=== PATIENT | male | born 1960 | race Asian ===

== ENCOUNTER 2019-01-02 22:35 | Inpatient (IN) | payer OTHER ==
[~2019-01-02] VITALS: Ht 167.6 cm; Wt 78.1 kg
[2019-01-02] MEDS ORDERED: SODIUM CHLORIDE 0.9% 1L BAG IV* STA (22:53)
[2019-01-02] MEDS ORDERED: PIPER-TAZO 3.375 GM IV (PMX) 100 ML IVPB STA (22:53)
[2019-01-03] MEDS ORDERED: SOD CHLORIDE 0.9% 100 ML ONE (02:06)
[2019-01-03] MEDS ORDERED: IOHEXOL 300MG/ML 150 ML BTL ONE (02:06)
--- NOTE | 2019-01-03 02:29 | ERD ---
ER Documentation Chief Complaint Chief Complaint BIBA 881 for back pain and SOB HPI 58-year-old homeless male brought in by ambulance for back pain and shortness of breath. He states that he has a wound on his buttocks and was seen 2 days ago and placed on antibiotics. He denies any chest pain but states he is somewhat short of breath. His Luu was last changed 2 weeks ago by a urologist. He denies any chest pain or abdominal pain. No recent fevers or chills. ROS All systems reviewed and are negative except as per history of present illness. Medications Home Meds Unable to Obtain Active Prescriptions or Reported Meds Allergies Allergies: Coded Allergies: vancomycin (Verified Allergy, Unknown, 01/02/19) PMhx/Soc History of Surgery: No Hx Cardiac Disorders: Yes (HTN) Hx Miscellaneous Medical Probl: Yes (Sacral decubitus ulcers) Hx Alcohol Use: No Hx Substance Use: No Hx Tobacco Use: No Smoking Status: Never smoker FmHx Family History: No diabetes Physical Exam Vitals Vital Signs Date Temp Pulse Resp B/P (MAP) Pulse Ox O2 O2 Flow FiO2 Time Delivery Rate 01/03/19 85 20 105/69 99 Room Air 02:29 (81) 01/03/19 98.9 89 19 90/68 (75) 96 Room Air 01:42 01/03/19 92 20 102/80 97 Room Air 01:27 (87) 01/03/19 Simple 2 00:10 Mask 01/02/19 99.7 139 18 160/103 100 22:40 (122) Physical Exam Const: Appears to be in distress Head: Atraumatic Eyes: Normal Conjunctiva ENT: Dry oral mucosa Neck: Full range of motion. No meningismus. Resp: Clear to auscultation bilaterally Cardio: tachycardic with regular rhythm, no murmurs Abd: Soft, non tender, non distended. Normal bowel sounds Skin: No petechiae or rashes Back: No midline or flank tenderness. Bilateral sacral decubitus stage IV ulcers with necrotic tissue noted : Luu in place Ext: No cyanosis, or edema Neur: Awake and alert Psych: Normal Mood and Affect Result Diagram: 01/02/19 2307 01/02/19 2305 Results 24 hrs Laboratory Tests Test 01/02/19 23:05 01/03/19 00:05 01/03/19 02:25 White Blood Count 15.4 10^3/ul Red Blood Count 7.05 10^6/ul Hemoglobin 13.2 g/dl Hematocrit 43.5 % Mean Corpuscular Volume 61.7 fl Mean Corpuscular Hemoglobin 18.7 pg Mean Corpuscular 30.3 g/dl Hemoglobin Concent Red Cell Distribution Width 20.3 % Platelet Count 575 10^3/UL Mean Platelet Volume 8.2 fl Immature Granulocytes % 0.700 % Neutrophils % 72.4 % Lymphocytes % 20.1 % Monocytes % 5.3 % Eosinophils % 1.1 % Basophils % 0.4 % Nucleated Red Blood Cells % 0.0 /100WBC Immature Granulocytes # 0.110 10^3/ul Neutrophils # 11.1 10^3/ul Lymphocytes # 3.1 10^3/ul Monocytes # 0.8 10^3/ul Eosinophils # 0.2 10^3/ul Basophils # 0.1 10^3/ul Nucleated Red Blood Cells # 0.0 10^3/ul Prothrombin Time 12.2 Sec Prothrombin Time Ratio 1.0 INR International Normalized Ratio 0.89 Activated Partial Thromboplast 35.2 Sec Time Sodium Level 133 mmol/L Potassium Level 5.4 mmol/L Chloride Level 93 mmol/L Carbon Dioxide Level 24 mmol/L Anion Gap 16 Blood Urea Nitrogen 22 mg/dl Creatinine 0.68 mg/dl Est Glomerular Filtrat Rate mL/min > 60 mL/min Glucose Level 350 mg/dl Calcium Level 10.0 mg/dl Total Bilirubin 0.1 mg/dl Direct Bilirubin 0.00 mg/dl Indirect Bilirubin 0.1 mg/dl Aspartate Amino Transf (AST/SGOT) 36 IU/L Alanine 6 IU/L Aminotransferase (ALT/SGPT) Alkaline Phosphatase 129 IU/L Troponin I < 0.012 ng/ml Total Protein 10.3 g/dl Albumin 4.6 g/dl Globulin 5.70 g/dl Albumin/Globulin Ratio 0.80 POC Venous Lactate 3.3 mmol/L 2.1 mmol/L Current Medications Medications Dose Sig/Yvette Start Time Status Last (Trade) Ordered Route PRN Stop Time Admin Dose Reason Admin Sodium 2,250 ml BOLUS OVER 2 01/02/19 DC 01/02/19 Chloride HOURS STAT 22:53 23:17 (NS) IV* 01/02/19 22:54 Piperacillin 100 ml @ ONCE STAT 01/02/19 DC 01/02/19 Sod/ 200 mls/hr IVPB 22:53 23:16 Tazobactam 01/02/19 23:22 Sod IV Flush 10 ml STK-MED 01/03/19 DC (NS 10 ml) ONCE .ROUTE 02:06 01/03/19 02:07 Sodium 100 ml @ ud STK-MED 01/03/19 DC Chloride ONCE .ROUTE 02:06 01/03/19 02:07 Iohexol 150 ml STK-MED 01/03/19 DC (Omnipaque ONCE .ROUTE 02:06 300mg/ ml) 01/03/19 02:07 Ondansetron 4 mg ER BRIDGE 01/03/19 HCl (Zofran PRN IV 02:30 Inj) NAUSEA/VOMITI 01/04/19 02:29 NG 650 mg ER BRIDGE 01/03/19 Acetaminophen PRN PO 02:30 (Tylenol .MILD PAIN 01/04/19 02:29 Tab) 1-3 OR TEMP Procedures/MDM EMERGENT LABS AND DIAGNOSTIC STUDIES: Lab Results above were reviewed and interpreted by me. CBC: Leukocytosis and thrombocytosis, concerning for infection CMP: Hyperglycemia, elevated BUN, and hyperkalemia. No evidence of acute renal failure. No evidence of DKA. Troponin within normal limits, not indicative of cardiac ischemia Lactate elevated consistent with severe sepsis and tissue hypoperfusion UA: Pending 12-lead EKG was interpreted by Kelly Nichols MD: Sinus tachycardia with ventricular rate of 124 beats per minute Left axis deviation Inferior Q waves abnormal R wave progression Normal intervals No acute ST or T wave changes suggestive of acute ischemia or STEMI. Radiology Results as interpreted by Radiology below were reviewed by Cassidy Nichols MD: Chest x-ray shows no acute abnormalities CT pelvis with IV contrast pending Initial Nursing notes reviewed. Previous Medical Records requested via the Electronic Health Record. EMERGENCY DEPARTMENT COURSE / MEDICAL DECISION MAKING: Patient has no evidence of pneumonia. He does have a chronic Luu so I am concerned about UTI. However the patient is refusing to have us change his Luu. I do not think the urine from his current Luu is sufficient enough for testing as it would likely be positive due to contamination. His sacral wound does appear infected. I ordered a CT pelvis to evaluate for underlying abscess, however the patient is refusing to have it done stating that he had a done last week and does not want it again. I explained to him exactly why I am doing the CT, however the patient continues to refuse. He is alert and oriented and able to make medical decisions for himself. Patient's infectious symptoms have not stabilized and the patient is at risk of rapid decompensation. The patient will be admitted for careful hydration, antibiotic therapy, and infectious source control. Severe Sepsis Assessment: Infectious Source: Infected sacral wound. possible UTI End organ damage indicated by: Lactate > 2.0 mmol/L Severe Sepsis Managment: Blood Cultures X 2 before broad spectrum antibiotics initiated within 3 hours of recognition. 30 ml/kg NS bolus Completed Initial Lactate: 3.3 Repeat Lactate 2.1 Critical Care: Time: 35 minutes Treatments/Evaluations: Emergent fluid management, while maintaining close respiratory support. Immediate broad spectrum antibiotic therapy. Simultaneous assessment for possible sources in order to direct therapy. Consideration for invasive and chemical support to prevent respiratory or cardiac collapse. Septic Shock Assessment (1 hour post 30 ml/kg fluid bolus): Hypotension (SBP < 90 or 40 mmHg drop, MAP < 65): No Lactic acid > 4.0 no Accepting Care Team: Current data and ongoing care discussed. Time: Time of admission Primary Provider: Dr. Lilly Bedolla Diagnosis: Primary Impression: Severe sepsis Additional Impressions: Infected wound Sacral decubitus ulcer, stage IV Hyperglycemia Condition: Serious EKLOAN KAYE MD Jan 03, 2019 02:29
[2019-01-03] MEDS ORDERED: ONDANSETRON 4 MG INJ IV PRN ×2 (02:30→05:00)
[2019-01-03] MEDS ORDERED: ACETAMINOPHEN 325 MG TAB PO PRN (02:30)
[2019-01-03] MEDS ORDERED: GLUCAGON 1 MG INJ IM PRN (05:00)
[2019-01-03] MEDS ORDERED: DEXTROSE 50% 50 ML SYRINGE IV PRN ×2 (05:00)
[2019-01-03] MEDS ORDERED: NACL 0.9% 3 ML SYG IV SCH (05:00)
[2019-01-03] MEDS ORDERED: morphine 2 MG INJ IV PRN (05:00)
[2019-01-03] MEDS ORDERED: GLUCOSE GEL 15 GRAM TUBE BUCCAL PRN (05:00)
[2019-01-03] MEDS ORDERED: GLUCOSE GEL 15 GRAM TUBE PO PRN ×2 (05:00)
[2019-01-03] MEDS: SOD CHLORIDE 0.9% 1,000 ML IV SCH ×2 (05:39→15:25)
[2019-01-03] MEDS: PIPER-TAZO 3.375 GM IV (PMX) 100 ML IVPB SCH ×3 (06:10→18:37)
[2019-01-03] MEDS ORDERED: INSULIN ASPART [NOVOLOG] 3 ML PEN SC SCH (08:00)
[2019-01-03] MEDS: metFORMIN 500 MG TAB PO SCH ×2 (09:00→18:37)
--- NOTE | 2019-01-03 09:06 | HP ---
Date/Time of Note Date/Time of Note DATE: 01/03/19 TIME: 08:56 Assessment/Plan VTE Prophylaxis SCD applied (from Nsg): Yes Pharmacological prophylaxis: heparin Lines/Catheters IV Catheter Type (from Nrsg): Saline Lock Assessment/Plan Problems: (1) Sepsis Status: Acute Comment: Patient has been treated with full cultures and is now on antibiotics. Will have surgery look at the wounds and see about getting him cleaned up. Follow standard sepsis protocol. Qualifiers: Sepsis type: sepsis due to unspecified organism Qualified Codes: A41.9 - Sepsis, unspecified organism (2) Sacral decubitus ulcer, stage IV Status: Acute Comment: General surgery and wound consult have been obtained. I have a sensation that there is a lot more to find out about this gentleman from his other hospitals however there is no way to get that information at this very moment (3) Paraplegic spinal paralysis Status: Chronic Comment: Noted. environmental services coordinator and case management to be involved (4) Wheelchair bound Status: Chronic Comment: As above. (5) Luu catheter in place Status: Chronic Comment: Try to replace the Luu catheter. These note the patient states he does not have urologist that the Luu catheter was changed 2 weeks ago at a different hospital (6) Hyperglycemia Status: Acute Comment: Check A1c place patient on insulin based regimen of low-dose metformin. We will try and get this under control but we need to do this simply because this is not going to be an extremely compliant patient (7) Essential hypertension Status: Chronic Comment: Use of ANTONIO inhibitors once stable (8) Homeless single person Status: Chronic Comment: Management and healthcare social worker Result Diagram: 01/03/19 0541 01/03/19 0541 Results 24hrs Laboratory Tests Test 01/02/19 23:05 01/03/19 00:05 01/03/19 02:25 01/03/19 04:16 White Blood Count 15.4 H Red Blood Count 7.05 H Hemoglobin 13.2 L Hematocrit 43.5 Mean Corpuscular 61.7 L Volume Mean Corpuscular 18.7 L Hemoglobin Mean Corpuscular 30.3 L Hemoglobin Concent Red Cell 20.3 H Distribution Width Platelet Count 575 H Mean Platelet Volume 8.2 Immature 0.700 H Granulocytes % Neutrophils % 72.4 Lymphocytes % 20.1 Monocytes % 5.3 Eosinophils % 1.1 Basophils % 0.4 Nucleated Red Blood 0.0 Cells % Immature 0.110 H Granulocytes # Neutrophils # 11.1 H Lymphocytes # 3.1 H Monocytes # 0.8 Eosinophils # 0.2 Basophils # 0.1 Nucleated Red Blood 0.0 Cells # Prothrombin Time 12.2 Prothrombin Time 1.0 Ratio INR International 0.89 Normalized Ratio Activated 35.2 H Partial Thromboplast Time Sodium Level 133 L Potassium Level 5.4 H Chloride Level 93 L Carbon Dioxide Level 24 Anion Gap 16 H Blood Urea Nitrogen 22 H Creatinine 0.68 Est Glomerular > 60 Filtrat Rate mL/min Glucose Level 350 H Calcium Level 10.0 Total Bilirubin 0.1 L Direct Bilirubin 0.00 Indirect Bilirubin 0.1 Aspartate Amino 36 Transf (AST/SGOT) Alanine 6 L Aminotransferase (AL T/SGPT) Alkaline Phosphatase 129 H Troponin I < 0.012 Total Protein 10.3 H Albumin 4.6 Globulin 5.70 H Albumin/Globulin 0.80 Ratio POC Venous Lactate 3.3 *H 2.1 *H Lactic Acid Level 2.5 *H Test 01/03/19 05:41 01/03/19 08:05 White Blood Count 12.8 H Red Blood Count 5.75 Hemoglobin 10.9 L Hematocrit 36.0 L Mean Corpuscular 62.6 L Volume Mean Corpuscular 19.0 L Hemoglobin Mean Corpuscular 30.3 L Hemoglobin Concent Red Cell 19.1 H Distribution Width Platelet Count 442 #H Mean Platelet Volume 8.2 Immature 0.900 H Granulocytes % Neutrophils % 67.6 Lymphocytes % 19.8 Monocytes % 8.8 Eosinophils % 2.4 Basophils % 0.5 Nucleated Red Blood 0.0 Cells % Immature 0.120 H Granulocytes # Neutrophils # 8.7 H Lymphocytes # 2.5 Monocytes # 1.1 H Eosinophils # 0.3 Basophils # 0.1 Nucleated Red Blood 0.0 Cells # Sodium Level 136 Potassium Level 4.1 Chloride Level 101 Carbon Dioxide Level 22 Anion Gap 13 Blood Urea Nitrogen 16 Creatinine 0.47 L Est Glomerular > 60 Filtrat Rate mL/min Glucose Level 195 # Calcium Level 8.4 Magnesium Level 1.9 Total Bilirubin 0.2 Direct Bilirubin 0.00 Indirect Bilirubin 0.2 Aspartate Amino 19 Transf (AST/SGOT) Alanine 7 L Aminotransferase (AL T/SGPT) Alkaline Phosphatase 93 Total Protein 7.7 # Albumin 3.5 # Globulin 4.20 H Albumin/Globulin 0.83 Ratio Bedside Glucose 230 H HPI/ROS Admit Date/Time Admit Date/Time January 03, 2019 ROS Patient is a limited historian. He reports that he came to the hospital because he is having pain. He states that he is trying to find a long term to move into when asked about his living situation. He has recently been in a hospital in the city but has no idea who the physicians were which hospital it was what medications he takes. He states he does not use an outpatient pharmacy, and gets all of his medications from the hospital directly. He reports he is never had surgery. Constitutional: febrile Eyes: no complaints ENT: no complaints Respiratory: no complaints Cardiovascular: no complaints Gastrointestinal: no complaints Musculoskeletal: back pain Skin: skin lesions Neurologic: no complaints PMH/Family/Social Past Medical History He is not a good historian Medical History: diabetes (Type II), other (Reports a history of paraplegia for roughly 5 years as near as I can determine.) Medications Current Medications Ondansetron HCl (Zofran Inj) 4 mg ER BRIDGE PRN IV NAUSEA/VOMITING; Start 01/03/19 at 02:30; Stop 01/04/19 at 02:29 Acetaminophen (Tylenol Tab) 650 mg ER BRIDGE PRN PO .MILD PAIN 1-3 OR TEMP; Start 01/03/19 at 02:30; Stop 01/04/19 at 02:29 Piperacillin Sod/ Tazobactam Sod 100 ml @ 200 mls/hr Q6 IVPB Last administered on 01/03/19at 06:10; Admin Dose 200 MLS/HR; Start 01/03/19 at 06:00 Sodium Chloride 1,000 ml @ 100 mls/hr Q10H IV Last administered on 01/03/19at 05:39; Admin Dose 100 MLS/HR; Start 01/03/19 at 04:51 IV Flush (NS 3 ml) 3 ml PER PROTOCOL IV ; Start 01/03/19 at 05:00 Ondansetron HCl (Zofran Inj) 4 mg Q6H PRN IV NAUSEA/VOMITING; Start 01/03/19 at 05:00 Acetaminophen (Tylenol Tab) 650 mg Q6H PRN PO .PAIN 1-3 OR TEMP; Start 01/03/19 at 05:00 Acetaminophen/ Hydrocodone Bitart (Rogers (5/325)) 1 tab Q6H PRN PO .PAIN 4-6; Start 01/03/19 at 05:00 Morphine Sulfate (morphine) 2 mg Q4H PRN IV .PAIN 7-10; Start 01/03/19 at 05:00 Diagnostic Test (Pha) (Accu-Chek) 1 ea 02 XX ; Start 01/04/19 at 02:00 Insulin Aspart (Novolog Insulin Pen) NOVOLOG *MILD* ALGORITHM WITH MEALS BEDTIME SC Last administered on 01/03/19at 08:18; Admin Dose 3 UNIT; Start 01/03/19 at 08:00 Miscellaneous Information 1 ea NOTE XX ; Start 01/03/19 at 05:00 Glucose (Glutose) 15 gm Q15M PRN PO DECREASED GLUCOSE; Start 01/03/19 at 05:00 Glucose (Glutose) 22.5 gm Q15M PRN PO DECREASED GLUCOSE; Start 01/03/19 at 05:00 Dextrose (D50w Syringe) 25 ml Q15M PRN IV DECREASED GLUCOSE; Start 01/03/19 at 05:00 Dextrose (D50w Syringe) 50 ml Q15M PRN IV DECREASED GLUCOSE; Start 01/03/19 at 05:00 Glucagon (Glucagen) 1 mg Q15M PRN IM DECREASED GLUCOSE; Start 01/03/19 at 05:00 Glucose (Glutose) 15 gm Q15M PRN BUCCAL DECREASED GLUCOSE; Start 01/03/19 at 05:00 Coded Allergies: vancomycin (Verified Allergy, Unknown, 01/02/19) Past Surgical History Past Surgical Hx: no surgical history Family History Significant Family History: no pertinent family hx Social History Born in [place] and raised there apart actually in the [facility]. He is presently homeless. Alcohol Use: other (In the past) Smoking Status: Former smoker Drug Use: none Exam/Review of Systems Vital Signs Vitals Vital Signs Date Temp Pulse Resp B/P (MAP) Pulse Ox O2 O2 Flow FiO2 Time Delivery Rate 01/03/19 98.1 82 18 116/70 95 Room Air 08:30 (85) 01/03/19 2 00:10 Intake and Output 01/02/19 01/02/19 01/03/19 1515:00 23:00 07:00 IntakeIntake Total 2350 ml BalanceBalance 2350 ml Exam Exam Older male lying on a gurney in the emergency room moaning intermittently Constitutional: alert Head: normocephalic, atraumatic Eyes: nl conjunctiva, EOMI, nl lids, nl sclera Neck: supple, non-tender Respiratory: clear to auscultation, normal air movement Cardiovascular: regular rate and rhythm, nl pulses Gastrointestinal: soft, nl liver, spleen, non-tender Musculoskeletal: nl extremities to inspection (There is some atrophy of his muscles of his lower leg but less than I would have expected.) Extremities: normal pulses Neurological: NURSE STAFF II-XII intact, nl speech Skin: other (Decubiti on each buttock unstageable) TIN ROSALES MD Jan 03, 2019 09:06
--- NOTE | 2019-01-03 09:36 | CONS ---
Assessment/Plan Assessment/Plan Assessment/Plan (Daily) Left sacrum and buttock ulcers are granulating. There are new necrotic eschars of the right sacrum and buttock which will require operative debridement. This has been scheduled for tomorrow morning pending medical clearance. Consultation Date/Type/Reason Admit Date/Time January 03, 2019 Date of Consultation: Jan 03, 2019 Type of Consult General surgery Reason for Consultation Sacral and buttock decubitus ulcers Date/Time of Note DATE: 01/03/19 TIME: 09:31 Hx of Present Illness The patient is a 58-year-old paraplegic gentleman who resides in a [facility] care facility. He has known decubitus ulcers which have been treated, however he has extension of ulceration with new large patches of necrosis specifically on the right buttock and thigh. He has a chronic indwelling Luu catheter Constitutional: no complaints Eyes: no complaints ENT: no complaints Respiratory: no complaints Cardiovascular: no complaints Genitourinary: other (Chronic indwelling Luu catheter) Musculoskeletal: back pain, other (Sacral and buttock decubiti) Skin: other (Sacral and buttock decubiti full-thickness. The left sacral and buttock decubitus is packed and granulating. The right sacral and buttock decubitus has new necrotic eschars) Neurologic: other (Paraplegia) Psychological: no complaints Past Medical History Medical History: diabetes (Type II), other (Reports a history of paraplegia for roughly 5 years as near as I can determine.) Home Meds Unable to Obtain Active Prescriptions or Reported Meds Medications Current Medications Ondansetron HCl (Zofran Inj) 4 mg ER BRIDGE PRN IV NAUSEA/VOMITING; Start 01/03/19 at 02:30; Stop 01/04/19 at 02:29 Acetaminophen (Tylenol Tab) 650 mg ER BRIDGE PRN PO .MILD PAIN 1-3 OR TEMP; Start 01/03/19 at 02:30; Stop 01/04/19 at 02:29 Piperacillin Sod/ Tazobactam Sod 100 ml @ 200 mls/hr Q6 IVPB Last administered on 01/03/19at 06:10; Admin Dose 200 MLS/HR; Start 01/03/19 at 06:00 Sodium Chloride 1,000 ml @ 100 mls/hr Q10H IV Last administered on 01/03/19at 05:39; Admin Dose 100 MLS/HR; Start 01/03/19 at 04:51 IV Flush (NS 3 ml) 3 ml PER PROTOCOL IV ; Start 01/03/19 at 05:00 Ondansetron HCl (Zofran Inj) 4 mg Q6H PRN IV NAUSEA/VOMITING; Start 01/03/19 at 05:00 Acetaminophen (Tylenol Tab) 650 mg Q6H PRN PO .PAIN 1-3 OR TEMP; Start 01/03/19 at 05:00 Acetaminophen/ Hydrocodone Bitart ([place] (5/325)) 1 tab Q6H PRN PO .PAIN 4-6; Start 01/03/19 at 05:00 Morphine Sulfate (morphine) 2 mg Q4H PRN IV .PAIN 7-10; Start 01/03/19 at 05:00 Diagnostic Test (Pha) (Accu-Chek) 1 ea 02 XX ; Start 01/04/19 at 02:00 Insulin Aspart (Novolog Insulin Pen) NOVOLOG *MILD* ALGORITHM WITH MEALS BEDTIME SC Last administered on 01/03/19at 08:18; Admin Dose 3 UNIT; Start 01/03/19 at 08:00 Miscellaneous Information 1 ea NOTE XX ; Start 01/03/19 at 05:00 Glucose (Glutose) 15 gm Q15M PRN PO DECREASED GLUCOSE; Start 01/03/19 at 05:00 Glucose (Glutose) 22.5 gm Q15M PRN PO DECREASED GLUCOSE; Start 01/03/19 at 05:00 Dextrose (D50w Syringe) 25 ml Q15M PRN IV DECREASED GLUCOSE; Start 01/03/19 at 05:00 Dextrose (D50w Syringe) 50 ml Q15M PRN IV DECREASED GLUCOSE; Start 01/03/19 at 05:00 Glucagon (Glucagen) 1 mg Q15M PRN IM DECREASED GLUCOSE; Start 01/03/19 at 05:00 Glucose (Glutose) 15 gm Q15M PRN BUCCAL DECREASED GLUCOSE; Start 01/03/19 at 05:00 Miscellaneous Information (* Miscellaneous Pharmacy Order) Discontinue current oral sulfonylur... ONCE ONCE XX ; Start 01/03/19 at 09:00; Stop 01/03/19 at 09:01; Status UNV Diagnostic Test (Pha) (Accu-Chek) 1 ea 02 XX ; Start 01/04/19 at 02:00; Status UNV Diagnostic Test (Pha) (Accu-Chek) 1 ea 2 HOURS AFTER MEALS XX ; Start 01/03/19 at 10:00; Status UNV Insulin Glargine (Lantus) 15 units DAILY@2000 SC ; Start 01/03/19 at 20:00; Status UNV Insulin Aspart (Novolog Insulin Pen) 5 unit WITH MEALS SC ; Start 01/03/19 at 12:00; Status UNV Miscellaneous Information (* Miscellaneous Pharmacy Order) HYPOGLYCEMIA PROTOCOL w... ONCE ONCE XX ; Start 01/03/19 at 09:00; Stop 01/03/19 at 09:01; Status UNV Insulin Aspart (Novolog Insulin Pen) NOVOLOG *MILD* ALGORITHM WITH MEALS BEDTIME SC ; Start 01/03/19 at 12:00; Status UNV Miscellaneous Information (* Miscellaneous Pharmacy Order) Discontinue all previ... ONCE ONCE XX ; Start 01/03/19 at 09:00; Stop 01/03/19 at 09:01; Status UNV Metformin HCl (Glucophage) 500 mg BID WITH MEALS PO ; Start 01/03/19 at 09:00; Status UNV Allergies: Coded Allergies: vancomycin (Verified Allergy, Unknown, 01/02/19) Past Surgical History Past Surgical Hx: no surgical history Family History Significant Family History: no pertinent family hx Social History Alcohol Use: other (In the past) Smoking Status: Former smoker Drug Use: none Exam/Review of Systems Exam Vitals Vital Signs Date Temp Pulse Resp B/P (MAP) Pulse Ox O2 O2 Flow FiO2 Time Delivery Rate 01/03/19 98.1 82 18 116/70 95 Room Air 08:30 (85) 01/03/19 2 00:10 Intake and Output 01/02/19 01/02/19 01/03/19 1515:00 23:00 07:00 IntakeIntake Total 2350 ml BalanceBalance 2350 ml Constitutional: alert, oriented Psych: no complaints Head: normocephalic Eyes: nl conjunctiva ENMT: nl external ears & nose Neck: supple Respiratory: clear to auscultation Cardiovascular: regular rate and rhythm Gastrointestinal: soft Genitourinary - Male: other (Luu catheter) Musculoskeletal: other (Granulating decubiti of left sacrum and buttock. New necrotic eschars of right sacrum and buttock) Results Result Diagram: 01/03/19 0541 01/03/19 0541 Results 24hrs Laboratory Tests Test 01/02/19 23:05 01/03/19 00:05 01/03/19 02:25 01/03/19 04:16 White Blood Count 15.4 H Red Blood Count 7.05 H Hemoglobin 13.2 L Hematocrit 43.5 Mean Corpuscular 61.7 L Volume Mean Corpuscular 18.7 L Hemoglobin Mean Corpuscular 30.3 L Hemoglobin Concent Red Cell 20.3 H Distribution Width Platelet Count 575 H Mean Platelet Volume 8.2 Immature 0.700 H Granulocytes % Neutrophils % 72.4 Lymphocytes % 20.1 Monocytes % 5.3 Eosinophils % 1.1 Basophils % 0.4 Nucleated Red Blood 0.0 Cells % Immature 0.110 H Granulocytes # Neutrophils # 11.1 H Lymphocytes # 3.1 H Monocytes # 0.8 Eosinophils # 0.2 Basophils # 0.1 Nucleated Red Blood 0.0 Cells # Prothrombin Time 12.2 Prothrombin Time 1.0 Ratio INR International 0.89 Normalized Ratio Activated 35.2 H Partial Thromboplast Time Sodium Level 133 L Potassium Level 5.4 H Chloride Level 93 L Carbon Dioxide Level 24 Anion Gap 16 H Blood Urea Nitrogen 22 H Creatinine 0.68 Est Glomerular > 60 Filtrat Rate mL/min Glucose Level 350 H Calcium Level 10.0 Total Bilirubin 0.1 L Direct Bilirubin 0.00 Indirect Bilirubin 0.1 Aspartate Amino 36 Transf (AST/SGOT) Alanine 6 L Aminotransferase (AL T/SGPT) Alkaline Phosphatase 129 H Troponin I < 0.012 Total Protein 10.3 H Albumin 4.6 Globulin 5.70 H Albumin/Globulin 0.80 Ratio POC Venous Lactate 3.3 *H 2.1 *H Lactic Acid Level 2.5 *H Test 01/03/19 05:41 01/03/19 08:05 White Blood Count 12.8 H Red Blood Count 5.75 Hemoglobin 10.9 L Hematocrit 36.0 L Mean Corpuscular 62.6 L Volume Mean Corpuscular 19.0 L Hemoglobin Mean Corpuscular 30.3 L Hemoglobin Concent Red Cell 19.1 H Distribution Width Platelet Count 442 #H Mean Platelet Volume 8.2 Immature 0.900 H Granulocytes % Neutrophils % 67.6 Lymphocytes % 19.8 Monocytes % 8.8 Eosinophils % 2.4 Basophils % 0.5 Nucleated Red Blood 0.0 Cells % Immature 0.120 H Granulocytes # Neutrophils # 8.7 H Lymphocytes # 2.5 Monocytes # 1.1 H Eosinophils # 0.3 Basophils # 0.1 Nucleated Red Blood 0.0 Cells # Sodium Level 136 Potassium Level 4.1 Chloride Level 101 Carbon Dioxide Level 22 Anion Gap 13 Blood Urea Nitrogen 16 Creatinine 0.47 L Est Glomerular > 60 Filtrat Rate mL/min Glucose Level 195 # Calcium Level 8.4 Magnesium Level 1.9 Total Bilirubin 0.2 Direct Bilirubin 0.00 Indirect Bilirubin 0.2 Aspartate Amino 19 Transf (AST/SGOT) Alanine 7 L Aminotransferase (AL T/SGPT) Alkaline Phosphatase 93 Total Protein 7.7 # Albumin 3.5 # Globulin 4.20 H Albumin/Globulin 0.83 Ratio Bedside Glucose 230 H Medications Medication Current Medications Ondansetron HCl (Zofran Inj) 4 mg ER BRIDGE PRN IV NAUSEA/VOMITING; Start at 02:30; Stop 01/04/19 at 02:29 Acetaminophen (Tylenol Tab) 650 mg ER BRIDGE PRN PO .MILD PAIN 1-3 OR TEMP; Start 01/03/19 at 02:30; Stop 01/04/19 at 02:29 Piperacillin Sod/ Tazobactam Sod 100 ml @ 200 mls/hr Q6 IVPB Last administered on 01/03/19at 06:10; Admin Dose 200 MLS/HR; Start 01/03/19 at 06:00 Sodium Chloride 1,000 ml @ 100 mls/hr Q10H IV Last administered on 01/03/19at 05:39; Admin Dose 100 MLS/HR; Start 01/03/19 at 04:51 IV Flush (NS 3 ml) 3 ml PER PROTOCOL IV ; Start 01/03/19 at 05:00 Ondansetron HCl (Zofran Inj) 4 mg Q6H PRN IV NAUSEA/VOMITING; Start 01/03/19 at 05:00 Acetaminophen (Tylenol Tab) 650 mg Q6H PRN PO .PAIN 1-3 OR TEMP; Start 01/03/19 at 05:00 Acetaminophen/ Hydrocodone Bitart ([place] (5/325)) 1 tab Q6H PRN PO .PAIN 4-6; Start 01/03/19 at 05:00 Morphine Sulfate (morphine) 2 mg Q4H PRN IV .PAIN 7-10; Start 01/03/19 at 05:00 Diagnostic Test (Pha) (Accu-Chek) 1 ea 02 XX ; Start 01/04/19 at 02:00 Insulin Aspart (Novolog Insulin Pen) NOVOLOG *MILD* ALGORITHM WITH MEALS BEDTIME SC Last administered on 01/03/19at 08:18; Admin Dose 3 UNIT; Start 01/03/19 at 08:00 Miscellaneous Information 1 ea NOTE XX ; Start 01/03/19 at 05:00 Glucose (Glutose) 15 gm Q15M PRN PO DECREASED GLUCOSE; Start 01/03/19 at 05:00 Glucose (Glutose) 22.5 gm Q15M PRN PO DECREASED GLUCOSE; Start 01/03/19 at 05:00 Dextrose (D50w Syringe) 25 ml Q15M PRN IV DECREASED GLUCOSE; Start 01/03/19 at 05:00 Dextrose (D50w Syringe) 50 ml Q15M PRN IV DECREASED GLUCOSE; Start 01/03/19 at 05:00 Glucagon (Glucagen) 1 mg Q15M PRN IM DECREASED GLUCOSE; Start 01/03/19 at 05:00 Glucose (Glutose) 15 gm Q15M PRN BUCCAL DECREASED GLUCOSE; Start 01/03/19 at 05:00 Miscellaneous Information (* Miscellaneous Pharmacy Order) Discontinue current oral sulfonylur... ONCE ONCE XX ; Start 01/03/19 at 09:00; Stop 01/03/19 at 09:01; Status UNV Diagnostic Test (Pha) (Accu-Chek) 1 ea 02 XX ; Start 01/04/19 at 02:00; Status UNV Diagnostic Test (Pha) (Accu-Chek) 1 ea 2 HOURS AFTER MEALS XX ; Start 01/03/19 at 10:00; Status UNV Insulin Glargine (Lantus) 15 units DAILY@2000 SC ; Start 01/03/19 at 20:00; Status UNV Insulin Aspart (Novolog Insulin Pen) 5 unit WITH MEALS SC ; Start 01/03/19 at 12:00; Status UNV Miscellaneous Information (* Miscellaneous Pharmacy Order) HYPOGLYCEMIA PROTOCOL w... ONCE ONCE XX ; Start 01/03/19 at 09:00; Stop 01/03/19 at 09:01; Status UNV Insulin Aspart (Novolog Insulin Pen) NOVOLOG *MILD* ALGORITHM WITH MEALS BEDTIME SC ; Start 01/03/19 at 12:00; Status UNV Miscellaneous Information (* Miscellaneous Pharmacy Order) Discontinue all previ... ONCE ONCE XX ; Start 01/03/19 at 09:00; Stop 01/03/19 at 09:01; Status UNV Metformin HCl (Glucophage) 500 mg BID WITH MEALS PO ; Start 01/03/19 at 09:00; Status UNV MINA BATRES MD Jan 03, 2019 09:35
[2019-01-03] MEDS: ACCU-CHEK XX SCH ×3 (10:00→19:55)
[2019-01-03] MEDS: INSULIN ASPART [NOVOLOG] 3 ML PEN SC SCH ×5 (11:52→21:00)
[2019-01-03 13:37] VITALS: Ht 167.6 cm; Wt 78.1 kg
[2019-01-03 15:43] VITALS: PULSE 87
[2019-01-03 20:00] VITALS: BP 129/64; PULSE 90; RESP 19
[2019-01-03] MEDS ORDERED: INSULIN GLARGINE [LANTus] (100 UNITS/ML) SYG SC SCH (20:00)
[2019-01-03] MEDS ORDERED: PENDING SANTYL ORDER FOR WOUND CARE XX PRN (20:00)
[2019-01-03 20:42] VITALS: PULSE 92
[2019-01-03] MEDS: ACETAMINOPHEN 325 MG TAB PO PRN (21:51)
[2019-01-04] VITALS (9 sets, daily range): BP systolic 100–127; BP diastolic 56–67; PULSE 67–157; RESP 18–20
[2019-01-04] MEDS: PIPER-TAZO 3.375 GM IV (PMX) 100 ML IVPB SCH ×5 (00:14→21:03)
[2019-01-04] MEDS: SOD CHLORIDE 0.9% 1,000 ML IV SCH ×3 (00:15→21:03)
[2019-01-04] MEDS: ACCU-CHEK XX SCH ×7 (02:00→21:02)
[2019-01-04] MEDS ORDERED: ACCU-CHEK XX SCH (02:00)
[2019-01-04] MEDS: HYDROCODONE/APAP (5/325) TAB PO PRN ×2 (05:16→13:31)
[2019-01-04] MEDS: INSULIN ASPART [NOVOLOG] 3 ML PEN SC SCH ×5 (07:59→20:48)
[2019-01-04] MEDS: metFORMIN 500 MG TAB PO SCH (08:44)
--- NOTE | 2019-01-04 10:53 | QN ---
Documentation Comment Patient is adamant and absolutely refuses any surgical intervention for his decubiti We will therefore sign off and see again prn your request MINA BATRES MD Jan 04, 2019 10:53
[2019-01-04] MEDS ORDERED: LEVOTHYROXINE 75 MCG TAB PO ONE (11:00)
--- NOTE | 2019-01-04 11:08 | PN ---
Date/Time of Note Date/Time of Note DATE: 01/04/19 TIME: 11:04 Assessment/Plan VTE Prophylaxis Risk score (from Ns)>0 risk: 6 SCD applied (from [facility]): No SCD contraindicated: patient refusal Pharmacological prophylaxis: heparin Lines/Catheters IV Catheter Type (from [facility]): Peripheral IV Urinary Cath still in place: Yes Reason Cath still needed: skin wounds contaminated by urine Assessment/Plan Problems: (1) Sacral decubitus ulcer, stage IV Status: Acute Comment: Neurosurgery recommended for him to have debridement which the patient flatly refuses both to the surgeon and myself. We will do our best with wound management. (2) Infected wound Status: Acute Comment: On antibiotics and wound management team is involved (3) Paraplegic spinal paralysis Status: Chronic Comment: Chronic issue unclear exactly what has led to this (4) Wheelchair bound Status: Chronic Comment: Noted. Social work and case assistant to assist. Organ have quite a time getting him placed. In addition his ability to absorb and process information but has real limitations (5) Luu catheter in place Status: Chronic Comment: Fresh catheters been placed cultures pending (6) Hepatitis C antibody positive in blood Status: Chronic Comment: . The patient denies any knowledge of this. Hepatitis precautions for the staff (7) Essential hypertension Status: Chronic Comment: Adequate control. (8) Anemia Status: Acute Comment: His blood counts dropped rather precipitously since his been in the hospital without evidence of GI bleeding. We will go ahead and check the labs on him. Qualifiers: Anemia type: unspecified type Qualified Codes: D64.9 - Anemia, unspecified (9) Diabetes mellitus type II, uncontrolled Status: Chronic Comment: Adjusting his regimen to get him under better control using a simplified regimen. Qualifiers: Glycemic state: with hyperglycemia Qualified Codes: E11.65 - Type 2 d iabetes mellitus with hyperglycemia (10) Onychomycosis due to dermatophyte Status: Chronic Comment: Lamisil pulse therapy (11) Homeless single person Status: Chronic Comment: Case management and social work. This is going to be tricky Result Diagram: 01/04/19 0544 01/04/19 0544 Results 24hrs Laboratory Tests Test 01/03/19 11:48 01/03/19 17:39 01/03/19 21:36 01/04/19 05:44 Bedside Glucose 242 H 214 299 H White Blood Count 9.3 # Red Blood Count 4.93 Hemoglobin 9.5 L Hematocrit 31.1 L Mean Corpuscular 63.1 L Volume Mean Corpuscular 19.3 L Hemoglobin Mean Corpuscular 30.5 L Hemoglobin Concent Red Cell 18.6 H Distribution Width Platelet Count 379 Mean Platelet Volume 8.2 Immature 0.900 H Granulocytes % Neutrophils % 57.9 Lymphocytes % 27.8 Monocytes % 8.6 Eosinophils % 4.3 Basophils % 0.5 Nucleated Red Blood 0.0 Cells % Immature 0.080 H Granulocytes # Neutrophils # 5.4 Lymphocytes # 2.6 Monocytes # 0.8 Eosinophils # 0.4 Basophils # 0.1 Nucleated Red Blood 0.0 Cells # Erythrocyte 83 H Sedimentation Rate Prothrombin Time 12.9 Prothrombin Time 1.0 Ratio INR International 0.96 Normalized Ratio Activated 37.1 H Partial Thromboplast Time Sodium Level 137 Potassium Level 4.0 Chloride Level 103 Carbon Dioxide Level 25 Anion Gap 9 Blood Urea Nitrogen 10 Creatinine 0.55 L Est Glomerular > 60 Filtrat Rate mL/min Glucose Level 239 H Calcium Level 8.5 Magnesium Level 1.7 Total Bilirubin 0.0 L Direct Bilirubin 0.00 Indirect Bilirubin 0.0 Aspartate Amino 14 L Transf (AST/SGOT) Alanine 7 L Aminotransferase (AL T/SGPT) Alkaline Phosphatase 93 Total Protein 7.0 Albumin 3.2 L Globulin 3.80 H Albumin/Globulin 0.84 Ratio Thyroid Stimulating 9.960 H Hormone (TSH) Test 01/04/19 07:53 Bedside Glucose 245 H Subjective 24 Hr Interval Summary Free Text/Dictation Patient reports no known prior history of sugar issues or thyroid issues. He flatly declines intervention regarding the decubitus ulcers and there debridement. Constitutional: no complaints (His fevers chills or sweats) Respiratory: no complaints Cardiovascular: no complaints Gastrointestinal: no complaints Exam/Review of Systems Exam Vitals Vital Signs Date Temp Pulse Resp B/P (MAP) Pulse Ox O2 O2 Flow FiO2 Time Delivery Rate 01/04/19 78 08:00 01/04/19 98.6 18 127/56 96 Room Air 07:35 (79) 01/03/19 2 00:10 Intake and Output 01/03/19 01/03/19 01/04/19 1515:00 23:00 07:00 IntakeIntake Total 550 ml 600 ml OutputOutput Total 450 ml 2500 ml BalanceBalance 100 ml -1900 ml Constitutional: alert, oriented Respiratory: clear to auscultation, normal air movement Cardiovascular: regular rate and rhythm, nl pulses Gastrointestinal: soft, nl liver, spleen, non-tender Extremities: other (Bilateral onychomycosis) Results Results 24hrs Laboratory Tests Test 01/03/19 11:48 01/03/19 17:39 01/03/19 21:36 01/04/19 05:44 Bedside Glucose 242 H 214 299 H White Blood Count 9.3 # Red Blood Count 4.93 Hemoglobin 9.5 L Hematocrit 31.1 L Mean Corpuscular 63.1 L Volume Mean Corpuscular 19.3 L Hemoglobin Mean Corpuscular 30.5 L Hemoglobin Concent Red Cell 18.6 H Distribution Width Platelet Count 379 Mean Platelet Volume 8.2 Immature 0.900 H Granulocytes % Neutrophils % 57.9 Lymphocytes % 27.8 Monocytes % 8.6 Eosinophils % 4.3 Basophils % 0.5 Nucleated Red Blood 0.0 Cells % Immature 0.080 H Granulocytes # Neutrophils # 5.4 Lymphocytes # 2.6 Monocytes # 0.8 Eosinophils # 0.4 Basophils # 0.1 Nucleated Red Blood 0.0 Cells # Erythrocyte 83 H Sedimentation Rate Prothrombin Time 12.9 Prothrombin Time 1.0 Ratio INR International 0.96 Normalized Ratio Activated 37.1 H Partial Thromboplast Time Sodium Level 137 Potassium Level 4.0 Chloride Level 103 Carbon Dioxide Level 25 Anion Gap 9 Blood Urea Nitrogen 10 Creatinine 0.55 L Est Glomerular > 60 Filtrat Rate mL/min Glucose Level 239 H Calcium Level 8.5 Magnesium Level 1.7 Total Bilirubin 0.0 L Direct Bilirubin 0.00 Indirect Bilirubin 0.0 Aspartate Amino 14 L Transf (AST/SGOT) Alanine 7 L Aminotransferase (AL T/SGPT) Alkaline Phosphatase 93 Total Protein 7.0 Albumin 3.2 L Globulin 3.80 H Albumin/Globulin 0.84 Ratio Thyroid Stimulating 9.960 H Hormone (TSH) Test 01/04/19 07:53 Bedside Glucose 245 H Medications Medication Current Medications Piperacillin Sod/ Tazobactam Sod 100 ml @ 200 mls/hr Q6 IVPB Last administered on 01/04/19at 05:22; Admin Dose 200 MLS/HR; Start 01/03/19 at 06:00 Sodium Chloride 1,000 ml @ 100 mls/hr Q10H IV Last administered on 01/04/19at 08:44; Admin Dose 100 MLS/HR; Start 01/03/19 at 04:51 IV Flush (NS 3 ml) 3 ml PER PROTOCOL IV ; Start 01/03/19 at 05:00 Ondansetron HCl (Zofran Inj) 4 mg Q6H PRN IV NAUSEA/VOMITING; Start 01/03/19 at 05:00 Acetaminophen (Tylenol Tab) 650 mg Q6H PRN PO .PAIN 1-3 OR TEMP Last administered on 01/03/19at 21:51; Admin Dose 650 MG; Start 01/03/19 at 05:00 Acetaminophen/ Hydrocodone Bitart ([place] (5/325)) 1 tab Q6H PRN PO .PAIN 4-6 Last administered on 01/04/19at 05:16; Admin Dose 1 TAB; Start 01/03/19 at 05:00 Morphine Sulfate (morphine) 2 mg Q4H PRN IV .PAIN 7-10 Last administered on 01/03/19at 11:13; Admin Dose 2 MG; Start 01/03/19 at 05:00 Miscellaneous Information 1 ea NOTE XX ; Start 01/03/19 at 05:00 Glucose (Glutose) 15 gm Q15M PRN PO DECREASED GLUCOSE; Start 01/03/19 at 05:00 Glucose (Glutose) 22.5 gm Q15M PRN PO DECREASED GLUCOSE; Start 01/03/19 at 05:00 Dextrose (D50w Syringe) 25 ml Q15M PRN IV DECREASED GLUCOSE; Start 01/03/19 at 05:00 Dextrose (D50w Syringe) 50 ml Q15M PRN IV DECREASED GLUCOSE; Start 01/03/19 at 05:00 Glucagon (Glucagen) 1 mg Q15M PRN IM DECREASED GLUCOSE; Start 01/03/19 at 05:00 Glucose (Glutose) 15 gm Q15M PRN BUCCAL DECREASED GLUCOSE; Start 01/03/19 at 05:00 Diagnostic Test (Pha) (Accu-Chek) 1 ea 02 XX ; Start 01/04/19 at 02:00 Diagnostic Test (Pha) (Accu-Chek) 1 ea 2 HOURS AFTER MEALS XX Last administered on 01/04/19at 10:53; Admin Dose 1 EA; Start 2/16/19 at 10:00 Insulin Glargine (Lantus) 15 units DAILY@2000 SC Last administered on 01/03/19at 21:40; Admin Dose 15 UNITS; Start 01/03/19 at 20:00 Insulin Aspart (Novolog Insulin Pen) 5 unit WITH MEALS SC Last administered on 01/04/19at 08:00; Admin Dose 5 UNIT; Start 01/03/19 at 12:00 Insulin Aspart (Novolog Insulin Pen) NOVOLOG *MILD* ALGORITHM WITH MEALS BEDTIME SC Last administered on 01/04/19at 07:59; Admin Dose 3 UNIT; Start 01/03/19 at 12:00 Metformin HCl (Glucophage) 500 mg BID WITH MEALS PO Last administered on 01/04/19at 08:44; Admin Dose 500 MG; Start 01/03/19 at 09:00 Miscellaneous Information (Pending [facility] Order For Wound Care) This patient sanchez... PRN PRN XX WOUND CARE; Start 01/03/19 at 20:00 Levothyroxine Sodium (Synthroid) 75 mcg DAILY@06 PO ; Start 01/05/19 at 06:00; Status UNV Levothyroxine Sodium (Synthroid) 75 mcg ONCE ONCE PO ; Start 01/04/19 at 11:00; Stop 01/04/19 at 11:01; Status UNV Terbinafine HCl (Lamisil) 250 mg BID PO ; Start 01/04/19 at 11:00; Stop 01/11/19 at 10:59; Status UNV TIN ROSALES MD Jan 04, 2019 11:08
[2019-01-04] MEDS: NATEGLINIDE 60 MG TAB PO SCH ×2 (11:20→18:41)
[2019-01-04] MEDS: FAMOTIDINE 20 MG TAB PO SCH ×2 (11:30→20:53)
[2019-01-04] MEDS: TERBINAFINE 250 MG TAB PO SCH ×2 (13:31→20:53)
[2019-01-04] MEDS: metFORMIN 850 MG TAB PO SCH (18:39)
[2019-01-04] MEDS: INSULIN GLARGINE [LANTus] (100 UNITS/ML) SYG SC SCH (21:01)
[2019-01-05] VITALS (9 sets, daily range): BP systolic 94–120; BP diastolic 56–64; PULSE 76–90; RESP 17–18
[2019-01-05] MEDS: PIPER-TAZO 3.375 GM IV (PMX) 100 ML IVPB SCH ×3 (00:41→11:45)
[2019-01-05] MEDS: ACCU-CHEK XX SCH ×8 (01:06→21:28)
[2019-01-05] MEDS: LEVOTHYROXINE 75 MCG TAB PO SCH (05:14)
[2019-01-05] MEDS: SOD CHLORIDE 0.9% 1,000 ML IV SCH ×2 (05:52→21:28)
[2019-01-05] MEDS: NATEGLINIDE 60 MG TAB PO SCH ×3 (07:02→17:19)
[2019-01-05] MEDS: FAMOTIDINE 20 MG TAB PO SCH ×2 (08:48→20:59)
[2019-01-05] MEDS: TERBINAFINE 250 MG TAB PO SCH ×2 (08:48→20:58)
[2019-01-05] MEDS: metFORMIN 850 MG TAB PO SCH ×2 (08:49→17:19)
[2019-01-05] MEDS: INSULIN ASPART [NOVOLOG] 3 ML PEN SC SCH ×4 (09:03→21:26)
--- NOTE | 2019-01-05 11:42 | QN ---
Documentation Comment Patient is now agreeable to debridement of his decubiti Surgery will be arranged for sometime tomorrow MINA BATRES MD Jan 05, 2019 11:42
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
[2019-01-05] MEDS ORDERED: LIDOCAINE 1% (MPF) 5 ML VIAL SC ONE (12:30)
--- NOTE | 2019-01-05 12:40 | PREAC ---
Date/Time of Note Date/Time of Note DATE: 01/05/19 TIME: 12:38 Anesthesia Eval and Record Evaluation Time Pre-Procedure Interview DATE: 01/05/19 TIME: 12:38 Age 58 Sex male NPO: 8 hrs Preoperative diagnosis BUTTOCKS DECUBITIS Planned procedure DEBRIDEMENT SACRAL BUTTOCKS DECUBITIS Past Medical History Past Medical History: Includes Cardio: HTN Endo: Diabetes Neuro: Other (Paraplegic) Surgery & Anesthesia Issues No known issue Meds Anticoagulation: No Beta Denisha within 24 hr: No Reason Beta Denisha not given: Pt. not on B-Denisha Unable to Obtain Active Prescriptions or Reported Meds Current Medications Piperacillin Sod/ Tazobactam Sod 100 ml @ 200 mls/hr Q6 IVPB Last administered on 01/05/19 11:45; Admin Dose 200 MLS/HR; Start 01/03/19 at 06:00 Sodium Chloride 1,000 ml @ 100 mls/hr Q10H IV Last administered on 01/04/19 21:03; Admin Dose 100 MLS/HR; Start 01/03/19 at 04:51 IV Flush (NS 3 ml) 3 ml PER PROTOCOL IV ; Start 01/03/19 at 05:00 Ondansetron HCl (Zofran Inj) 4 mg Q6H PRN IV NAUSEA/VOMITING; Start 01/03/19 at 05:00 Acetaminophen (Tylenol Tab) 650 mg Q6H PRN PO .PAIN 1-3 OR TEMP Last administered on 01/03/19 21:51; Admin Dose 650 MG; Start 01/03/19 at 05:00 Acetaminophen/ Hydrocodone Bitart ([place] (5/325)) 1 tab Q6H PRN PO .PAIN 4-6 Last administered on 01/04/19 13:31; Admin Dose 1 TAB; Start 01/03/19 at 05:00 Morphine Sulfate (morphine) 2 mg Q4H PRN IV .PAIN 7-10 Last administered on 01/03/19 11:13; Admin Dose 2 MG; Start 01/03/19 at 05:00 Miscellaneous Information 1 ea NOTE XX ; Start 01/03/19 at 05:00 Glucose (Glutose) 15 gm Q15M PRN PO DECREASED GLUCOSE; Start 01/03/19 at 05:00 Glucose (Glutose) 22.5 gm Q15M PRN PO DECREASED GLUCOSE; Start 01/03/19 at 05:00 Dextrose (D50w Syringe) 25 ml Q15M PRN IV DECREASED GLUCOSE; Start 01/03/19 at 05:00 Dextrose (D50w Syringe) 50 ml Q15M PRN IV DECREASED GLUCOSE; Start 01/03/19 at 05:00 Glucagon (Glucagen) 1 mg Q15M PRN IM DECREASED GLUCOSE; Start 01/03/19 at 05:00 Glucose (Glutose) 15 gm Q15M PRN BUCCAL DECREASED GLUCOSE; Start 01/03/19 at 05:00 Diagnostic Test (Pha) (Accu-Chek) 1 ea 02 XX ; Start 01/04/19 at 02:00 Diagnostic Test (Pha) (Accu-Chek) 1 ea 2 HOURS AFTER MEALS XX Last administered on 01/04/19at 10:53; Admin Dose 1 EA; Start 01/03/19 at 10:00 Insulin Aspart (Novolog Insulin Pen) NOVOLOG *MILD* ALGORITHM WITH MEALS BEDTIME SC Last administered on 01/05/19at 12:10; Admin Dose 2 UNIT; Start 01/03/19 at 12:00 Miscellaneous Information (Pending [facility] Order For Wound Care) This patient sancehz... PRN PRN XX WOUND CARE; Start 01/03/19 at 20:00 Levothyroxine Sodium (Synthroid) 75 mcg DAILY@06 PO Last administered on 01/05/19at 05:14; Admin Dose 75 MCG; Start 01/05/19 at 06:00 Terbinafine HCl (Lamisil) 250 mg BID PO Last administered on 01/05/19at 08:48; Admin Dose 250 MG; Start 01/04/19 at 12:00; Stop 01/11/19 at 11:59 Insulin Glargine (Lantus) 18 units DAILY@2000 SC Last administered on 01/04/19at 21:01; Admin Dose 18 UNITS; Start 01/04/19 at 20:00 Metformin HCl (Glucophage) 850 mg BID WITH MEALS PO Last administered on 01/05/19at 08:49; Admin Dose 850 MG; Start 01/04/19 at 17:55 Nateglinide (Starlix) 60 mg AC MEALS PO Last administered on 01/05/19at 11:44; Admin Dose 60 MG; Start 2/17/19 at 11:20 Diagnostic Test (Pha) (Accu-Chek) 1 ea AC MEALS AND BEDTIME XX Last administered on 01/04/19at 21:02; Admin Dose 1 EA; Start 01/04/19 at 11:20 Famotidine (Pepcid) 20 mg BID PO Last administered on 01/05/19at 08:48; Admin Dose 20 MG; Start 01/04/19 at 11:30 Sodium Hypochlorite (Dakin'S (Dilute )) 1 applic BID IRR ; Start 01/05/19 at 13:00 Lidocaine (Xylocaine 1% (Mpf)) 5 ml ONCE ONCE SC ; Start 01/05/19 at 12:30; Stop 01/05/19 at 12:31; Status UNV Meds reviewed: Yes Allergies Coded Allergies: vancomycin (Verified Allergy, Unknown, 01/02/19) Allergies Reviewed: Yes Labs/Studies Labs Reviewed: Reviewed by anesthesiologist Result Diagram: 01/04/19 0544 01/04/1944 test: N/A Studies: ECG (SR), CXR (No evidence for active cardiopulmonary disease) Pre-procedure Exam Last vitals Vital Signs Date Temp Pulse Resp B/P (MAP) Pulse Ox O2 O2 Flow FiO2 Time Delivery Rate 01/05/19 97.5 76 17 106/63 94 11:24 (77) 01/04/19 Room Air 15:36 01/03/19 2 00:10 Airway: Adequate mouth opening Mallampati: Mallampati II Teeth: Abnormal (missing front teeth) Lung: Normal Heart: Normal ASA Physical Status ASA physical status: 2 Emergency: None Pre-operative Attestations Prior to commencing anesthesia and surgery, the patient was re-evaluated, there was verification of: *The patient's identity *The results of appropriate recent lab work and preoperative vital signs *The above evaluation not changing prior to induction *Anesthetic plan, risk benefits, alternative and complications discussed with patient/family; questions answered; patient/family understands, accepts and wishes to proceed. KYMBERLY PAULA Jan 05, 2019 12:40
[2019-01-05] MEDS: SODIUM HYPOCHLORITE (1/40) 1 APPLIC BTL IRR SCH ×2 (13:00→20:59)
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
[2019-01-05] MEDS: HYDROCODONE/APAP (5/325) TAB PO PRN (15:04)
[2019-01-05] MEDS: CLINDAMYCIN 900 MG/D5W (PMX) 50 ML IVPB SCH ×2 (15:07→22:00)
[2019-01-05] MEDS: ACETAMINOPHEN 325 MG TAB PO PRN (20:59)
[2019-01-05] MEDS: NYSTATIN 30 GM POWDER BTL TOP SCH (20:59)
[2019-01-05] MEDS: MEROPENEM 1 GM/50ML(PMX) 50 ML IVPB SCH (21:00)
[2019-01-05] MEDS: INSULIN GLARGINE [LANTus] (100 UNITS/ML) SYG SC SCH (21:25)
[2019-01-06] VITALS: PULSE 90
[2019-01-06] MEDS: ACCU-CHEK XX SCH ×8 (01:45→21:12)
[2019-01-06] MEDS: SOD CHLORIDE 0.9% 1,000 ML IV SCH ×3 (01:54→22:51)
[2019-01-06 04:00] VITALS: PULSE 78
[2019-01-06] MEDS: HYDROCODONE/APAP (5/325) TAB PO PRN ×3 (05:15→23:36)
[2019-01-06] MEDS: LEVOTHYROXINE 75 MCG TAB PO SCH (05:15)
[2019-01-06] MEDS: CLINDAMYCIN 900 MG/D5W (PMX) 50 ML IVPB SCH (05:47)
[2019-01-06] MEDS: NATEGLINIDE 60 MG TAB PO SCH ×3 (06:32→18:05)
[2019-01-06] MEDS: metFORMIN 850 MG TAB PO SCH ×2 (07:55→18:05)
[2019-01-06] MEDS: NYSTATIN 30 GM POWDER BTL TOP SCH ×2 (08:22→20:36)
[2019-01-06] MEDS: FAMOTIDINE 20 MG TAB PO SCH ×2 (08:22→20:35)
[2019-01-06] MEDS: TERBINAFINE 250 MG TAB PO SCH ×2 (08:22→20:35)
[2019-01-06] MEDS: INSULIN ASPART [NOVOLOG] 3 ML PEN SC SCH ×4 (08:37→21:11)
[2019-01-06] MEDS: MEROPENEM 1 GM/50ML(PMX) 50 ML IVPB SCH (09:00)
[2019-01-06] MEDS: SODIUM HYPOCHLORITE (1/40) 1 APPLIC BTL IRR SCH ×2 (09:00→20:36)
[2019-01-06 09:01] VITALS: PULSE 76
--- NOTE | 2019-01-06 10:02 | QN ---
Documentation Comment Patient is once again refusing debridement of decubiti We will therefore sign off and see again prn your request MINA BATRES MD Jan 06, 2019 10:02
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
[2019-01-06 12:44] VITALS: PULSE 75
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
[2019-01-06] MEDS: HEPARIN 5,000 UNIT/1 ML VIAL SC SCH ×2 (14:30→21:12)
[2019-01-06] MEDS: CIPROFLOXACIN 500 MG TAB PO SCH (18:05)
[2019-01-06] MEDS: ACETAMINOPHEN 325 MG TAB PO PRN (20:35)
[2019-01-06] MEDS: DOXYCYCLINE 100 MG TAB PO SCH (20:35)
[2019-01-06] MEDS: INSULIN GLARGINE [LANTus] (100 UNITS/ML) SYG SC SCH (21:11)
[2019-01-07] MEDS: ACCU-CHEK XX SCH ×8 (01:37→21:00)
[2019-01-07] MEDS: HYDROCODONE/APAP (5/325) TAB PO PRN (04:58)
[2019-01-07] MEDS: CIPROFLOXACIN 500 MG TAB PO SCH ×2 (05:58→17:27)
[2019-01-07] MEDS: LEVOTHYROXINE 75 MCG TAB PO SCH (05:58)
[2019-01-07 07:50] VITALS: BP 113/73; PULSE 77; RESP 18
[2019-01-07] MEDS: SOD CHLORIDE 0.9% 1,000 ML IV SCH ×2 (08:31→17:30)
[2019-01-07] MEDS: TERBINAFINE 250 MG TAB PO SCH ×2 (08:37→21:14)
[2019-01-07] MEDS: DOXYCYCLINE 100 MG TAB PO SCH ×2 (08:37→21:14)
[2019-01-07] MEDS: INSULIN ASPART [NOVOLOG] 3 ML PEN SC SCH ×4 (08:39→21:00)
[2019-01-07] MEDS: metFORMIN 850 MG TAB PO SCH ×2 (08:39→17:26)
[2019-01-07] MEDS: HEPARIN 5,000 UNIT/1 ML VIAL SC SCH ×2 (08:40→21:00)
[2019-01-07] MEDS: NYSTATIN 30 GM POWDER BTL TOP SCH ×2 (08:40→21:25)
[2019-01-07] MEDS: FAMOTIDINE 20 MG TAB PO SCH ×2 (08:40→21:00)
[2019-01-07] MEDS: NATEGLINIDE 60 MG TAB PO SCH ×3 (09:16→17:26)
[2019-01-07] MEDS: SODIUM HYPOCHLORITE (1/40) 1 APPLIC BTL IRR SCH ×2 (12:10→21:25)
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
[2019-01-07 14:40] VITALS: BP 105/66; PULSE 79; RESP 16
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
--- NOTE | 2019-01-07 18:37 | QN ---
Documentation Comment Patient is a 58-year old male who is increasingly anxious very irritable he states he has a right to refuse treatments and there is no reason for psychiatry to be called because he refused treatment. Unable to continue assessment because patient is upset that psychiatry consult was called. LILLY HORTON NP Jan 07, 2019 6:37 pm
[2019-01-07 20:00] VITALS: BP 115/87; PULSE 76; RESP 18
[2019-01-07] MEDS: INSULIN GLARGINE [LANTus] (100 UNITS/ML) SYG SC SCH (21:17)
[2019-01-07] MEDS: ACETAMINOPHEN 325 MG TAB PO PRN (23:52)
[2019-01-08] MEDS: ACCU-CHEK XX SCH ×8 (01:24→21:00)
[2019-01-08] MEDS: SOD CHLORIDE 0.9% 1,000 ML IV SCH ×2 (03:12→14:51)
[2019-01-08] MEDS: CIPROFLOXACIN 500 MG TAB PO SCH ×2 (06:01→18:01)
[2019-01-08] MEDS: LEVOTHYROXINE 75 MCG TAB PO SCH (06:01)
[2019-01-08 07:30] VITALS: BP 113/72; PULSE 82
[2019-01-08] MEDS: HEPARIN 5,000 UNIT/1 ML VIAL SC SCH ×2 (09:00→21:00)
[2019-01-08] MEDS: TERBINAFINE 250 MG TAB PO SCH ×2 (09:18→21:31)
[2019-01-08] MEDS: FAMOTIDINE 20 MG TAB PO SCH ×2 (09:18→21:00)
[2019-01-08] MEDS: DOXYCYCLINE 100 MG TAB PO SCH ×2 (09:18→21:31)
[2019-01-08] MEDS: ACETAMINOPHEN 325 MG TAB PO PRN (09:18)
[2019-01-08] MEDS: NATEGLINIDE 60 MG TAB PO SCH ×3 (09:19→18:02)
[2019-01-08] MEDS: metFORMIN 850 MG TAB PO SCH ×2 (09:19→18:02)
[2019-01-08] MEDS: INSULIN ASPART [NOVOLOG] 3 ML PEN SC SCH ×4 (09:31→22:09)
[2019-01-08] MEDS: SODIUM HYPOCHLORITE (1/40) 1 APPLIC BTL IRR SCH ×2 (13:06→21:30)
[2019-01-08] MEDS: NYSTATIN 30 GM POWDER BTL TOP SCH ×2 (13:07→21:30)
[2019-01-08 14:18] VITALS: BP 109/69; PULSE 80
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
[2019-01-08 19:55] VITALS: BP 125/75; PULSE 86; RESP 18
--- NOTE | 2019-01-08 20:26 | CONS ---
Consult Date/Type/Reason Admit Date/Time Jan 03, 2019 at 02:19 Initial Consult Date 01/03/19 Type of Consultation: Urology Reason for Consultation Urinary retention, neurogenic bladder and urinary tract infection Requesting Provider: ALANNA BRIZUELA Date/Time of Note DATE: 01/08/19 TIME: 20:22 Subjective Patient has an indwelling Luu catheter that needs to be changed and he requested that I change it for him as the nursing staff had a problem changing it for him before. Objective Vitals Vital Signs Date Temp Pulse Resp B/P (MAP) Pulse Ox O2 O2 Flow FiO2 Time Delivery Rate 01/08/19 80 109/69 14:18 (82) 01/07/19 98.1 18 99 20:00 01/07/19 Room Air 14:40 Intake and Output 01/07/19 01/07/19 01/08/19 1515:00 23:00 07:00 IntakeIntake Total 320 ml 300 ml OutputOutput Total 1400 ml 300 ml BalanceBalance 320 ml -1100 ml -300 ml Exam Patient is paraplegic. Has a neurogenic bladder. He has a rash over the scrotum and groins. He has an indwelling Luu catheter that is old and indeed needs to be changed. Results/Medications Result Diagram: 01/07/19 0851 01/07/19 0851 Results 24 hrs Laboratory Tests Test 01/07/19 21:12 01/08/19 09:17 01/08/19 13:02 01/08/19 18:03 Bedside Glucose 139 233 H 221 H 242 H Home Meds Unable to Obtain Active Prescriptions or Reported Meds Medications Current Medications Sodium Chloride 1,000 ml @ 100 mls/hr Q10H IV Last administered on 01/04/19at 21:03; Admin Dose 100 MLS/HR; Start 01/03/19 at 04:51 IV Flush (NS 3 ml) 3 ml PER PROTOCOL IV ; Start 01/03/19 at 05:00 Ondansetron HCl (Zofran Inj) 4 mg Q6H PRN IV NAUSEA/VOMITING; Start 01/03/19 at 05:00 Acetaminophen (Tylenol Tab) 650 mg Q6H PRN PO .PAIN 1-3 OR TEMP Last administe red on 01/08/19at 09:18; Admin Dose 650 MG; Start 01/03/19 at 05:00 Acetaminophen/ Hydrocodone Bitart ([place] (5/325)) 1 tab Q6H PRN PO .PAIN 4-6 Last administered on 01/07/19at 04:58; Admin Dose 1 TAB; Start 01/03/19 at 05:00 Morphine Sulfate (morphine) 2 mg Q4H PRN IV .PAIN 7-10 Last administered on 01/03/19at 11:13; Admin Dose 2 MG; Start 01/03/19 at 05:00 Miscellaneous Information 1 ea NOTE XX ; Start 01/03/19 at 05:00 Glucose (Glutose) 15 gm Q15M PRN PO DECREASED GLUCOSE; Start 01/03/19 at 05:00 Glucose (Glutose) 22.5 gm Q15M PRN PO DECREASED GLUCOSE; Start 01/03/19 at 05:00 Dextrose (D50w Syringe) 25 ml Q15M PRN IV DECREASED GLUCOSE; Start 01/03/19 at 05:00 Dextrose (D50w Syringe) 50 ml Q15M PRN IV DECREASED GLUCOSE; Start 01/03/19 at 05:00 Glucagon (Glucagen) 1 mg Q15M PRN IM DECREASED GLUCOSE; Start 01/03/19 at 05:00 Glucose (Glutose) 15 gm Q15M PRN BUCCAL DECREASED GLUCOSE; Start 01/03/19 at 05:00 Diagnostic Test (Pha) (Accu-Chek) 1 ea 02 XX ; Start 01/04/19 at 02:00 Diagnostic Test (Pha) (Accu-Chek) 1 ea 2 HOURS AFTER MEALS XX Last administered on 01/04/19at 10:53; Admin Dose 1 EA; Start 01/03/19 at 10:00 Insulin Aspart (Novolog Insulin Pen) NOVOLOG *MILD* ALGORITHM WITH MEALS BEDTIME SC Last administered on 01/08/19at 18:04; Admin Dose 3 UNIT; Start 01/03/19 at 12:00 Miscellaneous Information (Pending [facility] Order For Wound Care) This patient sanchez... PRN PRN XX WOUND CARE; Start 01/03/19 at 20:00 Levothyroxine Sodium (Synthroid) 75 mcg DAILY@06 PO Last administered on 01/08/19at 06:01; Admin Dose 75 MCG; Start 01/05/19 at 06:00 Terbinafine HCl (Lamisil) 250 mg BID PO Last administered on 01/08/19 09:18; Admin Dose 250 MG; Start 01/04/19 at 12:00; Stop 01/11/19 at 11:59 Metformin HCl (Glucophage) 850 mg BID WITH MEALS PO Last administered on 01/08/19 18:02; Admin Dose 850 MG; Start 01/04/19 at 17:55 Nateglinide (Starlix) 60 mg AC MEALS PO Last administered on 01/08/19 18:02; Admin Dose 60 MG; Start 01/04/19 at 11:20 Diagnostic Test (Pha) (Accu-Chek) 1 ea AC MEALS AND BEDTIME XX Last administered on 01/08/19 18:03; Admin Dose 1 EA; Start 01/04/19 at 11:20 Famotidine (Pepcid) 20 mg BID PO Last administered on 01/08/19 09:18; Admin Dose 20 MG; Start 01/04/19 at 11:30 Sodium Hypochlorite (Dakin'S (Dilute 40)) 1 applic BID IRR Last administered on 01/08/19 13:06; Admin Dose 1 APPLIC; Start 01/05/19 at 13:00 Nystatin (Nystatin Powder) 1 applic BID TOP Last administered on 01/08/19 13:07; Admin Dose 1 APPLIC; Start 01/05/19 at 21:00 Insulin Glargine (Lantus) 20 units DAILY@2000 SC Last administered on 01/07/19 21:17; Admin Dose 20 UNITS; Start 01/06/19 at 20:00 Heparin Sodium (Porcine) (Heparin (5000 Units/1ml)) 5,000 unit BID SC Last administered on 01/06/19 21:12; Admin Dose 5,000 UNIT; Start 01/06/19 at 14:30 Doxycycline Hyclate (Vibramycin) 100 mg BID PO Last administered on 01/08/19 09:18; Admin Dose 100 MG; Start 01/06/19 at 21:00 Ciprofloxacin (Cipro) 500 mg BID@06,18 PO Last administered on 01/08/19 18:01; Admin Dose 500 MG; Start 01/06/19 at 18:00 Assessment/Plan Hospital Course (Demo Recall) 58-year-old male with a history of paraplegia and neurogenic bladder and indwelling Luu catheter. Previous attempts by nursing staff to change the Luu catheter were not successful. I did change his catheter before at another hospital and he requested that I change his catheter again for him here. I did deflate the balloon of the old Luu catheter and removed it then prepped the genital area and I inserted a 18 Amharic coud catheter. That went in without a problem but one could feel he does have strictures in the proximal urethra. We will send urine for culture from the new catheter JESUS ALBERTO YUSUF MD Jan 08, 2019 20:26
[2019-01-08] MEDS: INSULIN GLARGINE [LANTus] (100 UNITS/ML) SYG SC SCH (22:22)
[2019-01-09] MEDS: ACCU-CHEK XX SCH ×8 (02:00→21:00)
[2019-01-09] MEDS: LEVOTHYROXINE 75 MCG TAB PO SCH (06:00)
[2019-01-09] MEDS: CIPROFLOXACIN 500 MG TAB PO SCH ×2 (06:00→17:51)
[2019-01-09] MEDS: NATEGLINIDE 60 MG TAB PO SCH ×3 (07:30→17:51)
[2019-01-09] MEDS: INSULIN ASPART [NOVOLOG] 3 ML PEN SC SCH ×4 (08:00→21:00)
[2019-01-09] MEDS: SOD CHLORIDE 0.9% 1,000 ML IV SCH ×3 (08:50→20:51)
[2019-01-09] MEDS: TERBINAFINE 250 MG TAB PO SCH ×2 (11:00→22:11)
[2019-01-09] MEDS: FAMOTIDINE 20 MG TAB PO SCH ×2 (11:01→22:11)
[2019-01-09] MEDS: metFORMIN 850 MG TAB PO SCH ×2 (11:01→17:51)
[2019-01-09] MEDS: DOXYCYCLINE 100 MG TAB PO SCH ×2 (11:01→22:11)
[2019-01-09] MEDS: HYDROCODONE/APAP (5/325) TAB PO PRN (11:02)
[2019-01-09] MEDS: HEPARIN 5,000 UNIT/1 ML VIAL SC SCH ×2 (11:16→22:14)
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
[2019-01-09 15:27] VITALS: BP 110/73; PULSE 80; RESP 18
[2019-01-09] MEDS: NYSTATIN 30 GM POWDER BTL TOP SCH ×2 (17:54→22:12)
[2019-01-09] MEDS: SODIUM HYPOCHLORITE (1/40) 1 APPLIC BTL IRR SCH ×3 (17:55→22:13)
[2019-01-09] MEDS: INSULIN GLARGINE [LANTus] (100 UNITS/ML) SYG SC SCH (22:11)
[2019-01-09] MEDS: CLOTRIMAZOLE 1% 30 GM CR TOP SCH (22:12)
[2019-01-10] MEDS: ACCU-CHEK XX SCH ×8 (02:00→21:00)
[2019-01-10] MEDS: CIPROFLOXACIN 500 MG TAB PO SCH ×2 (06:22→18:05)
[2019-01-10] MEDS: LEVOTHYROXINE 75 MCG TAB PO SCH (06:22)
[2019-01-10] MEDS: HYDROCODONE/APAP (5/325) TAB PO PRN ×2 (06:23→21:56)
[2019-01-10] MEDS: SOD CHLORIDE 0.9% 1,000 ML IV SCH ×2 (06:51→16:28)
[2019-01-10] MEDS: metFORMIN 850 MG TAB PO SCH ×2 (08:00→18:06)
[2019-01-10] MEDS: INSULIN ASPART [NOVOLOG] 3 ML PEN SC SCH ×4 (08:00→22:05)
[2019-01-10] MEDS: NATEGLINIDE 60 MG TAB PO SCH ×3 (08:30→18:05)
[2019-01-10] MEDS: FAMOTIDINE 20 MG TAB PO SCH ×2 (08:56→21:00)
[2019-01-10] MEDS: SODIUM HYPOCHLORITE (1/40) 1 APPLIC BTL IRR SCH ×2 (08:56→22:19)
[2019-01-10] MEDS: TERBINAFINE 250 MG TAB PO SCH ×3 (08:56→21:57)
[2019-01-10] MEDS: DOXYCYCLINE 100 MG TAB PO SCH ×3 (08:57→21:57)
[2019-01-10] MEDS: HEPARIN 5,000 UNIT/1 ML VIAL SC SCH ×2 (08:57→21:00)
[2019-01-10] MEDS: CLOTRIMAZOLE 1% 30 GM CR TOP SCH ×2 (08:57→21:58)
[2019-01-10] MEDS: NYSTATIN 30 GM POWDER BTL TOP SCH ×2 (08:57→22:20)
[2019-01-10 14:00] VITALS: BP 122/71; PULSE 80; RESP 18
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
[2019-01-10 20:00] VITALS: BP 126/72; PULSE 87; RESP 20
[2019-01-10] MEDS: INSULIN GLARGINE [LANTus] (100 UNITS/ML) SYG SC SCH (22:05)
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
[2019-01-11] MEDS: ACETAMINOPHEN 325 MG TAB PO PRN (01:31)
[2019-01-11 02:00] VITALS: BP 120/71; RESP 19
[2019-01-11] MEDS: ACCU-CHEK XX SCH ×8 (02:00→21:00)
[2019-01-11] MEDS: SOD CHLORIDE 0.9% 1,000 ML IV SCH ×3 (02:51→22:51)
[2019-01-11] MEDS: LEVOTHYROXINE 75 MCG TAB PO SCH (06:00)
[2019-01-11] MEDS: CIPROFLOXACIN 500 MG TAB PO SCH ×2 (06:00→17:48)
[2019-01-11] MEDS: NATEGLINIDE 60 MG TAB PO SCH ×3 (07:30→17:48)
[2019-01-11] MEDS: metFORMIN 850 MG TAB PO SCH ×2 (08:00→17:48)
[2019-01-11] MEDS: INSULIN ASPART [NOVOLOG] 3 ML PEN SC SCH ×4 (08:00→21:12)
[2019-01-11] MEDS: NYSTATIN 30 GM POWDER BTL TOP SCH ×2 (09:00→21:20)
[2019-01-11] MEDS: HEPARIN 5,000 UNIT/1 ML VIAL SC SCH ×2 (09:00→21:00)
[2019-01-11] MEDS: CLOTRIMAZOLE 1% 30 GM CR TOP SCH ×2 (09:00→21:19)
[2019-01-11] MEDS: FAMOTIDINE 20 MG TAB PO SCH ×2 (09:00→21:00)
[2019-01-11 14:00] VITALS: BP 113/69; PULSE 79; RESP 17
[2019-01-11] MEDS: TERBINAFINE 250 MG TAB PO SCH (14:00)
[2019-01-11] MEDS: DOXYCYCLINE 100 MG TAB PO SCH ×2 (14:01→21:17)
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
[2019-01-11] MEDS: SODIUM HYPOCHLORITE (1/40) 1 APPLIC BTL IRR SCH ×2 (16:00→21:16)
[2019-01-11 20:05] VITALS: BP 113/76; PULSE 84; RESP 18
[2019-01-11] MEDS: INSULIN GLARGINE [LANTus] (100 UNITS/ML) SYG SC SCH (21:13)
[2019-01-12] MEDS: ACCU-CHEK XX SCH ×8 (02:00→21:00)
[2019-01-12 02:29] VITALS: BP 121/81; PULSE 94
[2019-01-12] MEDS: HYDROCODONE/APAP (5/325) TAB PO PRN (05:59)
[2019-01-12] MEDS: LEVOTHYROXINE 75 MCG TAB PO SCH (06:00)
[2019-01-12] MEDS: CIPROFLOXACIN 500 MG TAB PO SCH ×2 (06:00→17:32)
[2019-01-12] MEDS: NATEGLINIDE 60 MG TAB PO SCH ×3 (07:30→17:32)
[2019-01-12] MEDS: metFORMIN 850 MG TAB PO SCH ×2 (11:35→17:33)
[2019-01-12] MEDS: INSULIN ASPART [NOVOLOG] 3 ML PEN SC SCH ×4 (11:35→21:00)
[2019-01-12] MEDS: SOD CHLORIDE 0.9% 1,000 ML IV SCH ×2 (11:36→18:02)
[2019-01-12] MEDS: HEPARIN 5,000 UNIT/1 ML VIAL SC SCH ×2 (12:13→21:00)
[2019-01-12] MEDS: FAMOTIDINE 20 MG TAB PO SCH ×2 (12:18→21:37)
[2019-01-12] MEDS: DOXYCYCLINE 100 MG TAB PO SCH ×2 (12:18→21:37)
[2019-01-12] MEDS: NYSTATIN 30 GM POWDER BTL TOP SCH ×2 (12:25→21:00)
[2019-01-12] MEDS: CLOTRIMAZOLE 1% 30 GM CR TOP SCH ×2 (12:25→21:00)
[2019-01-12] MEDS: SODIUM HYPOCHLORITE (1/40) 1 APPLIC BTL IRR SCH ×2 (12:25→21:00)
[2019-01-12] MEDS: ACETAMINOPHEN 325 MG TAB PO PRN (15:30)
--- NOTE | 2019-01-12 15:57 | CONS ---
Assessment/Plan Assessment/Plan Hospital Course (Demo Recall) Patient is alert and looks comfortable no fevers overnight no labs he is refusing intravenous antibiotics and currently on oral Cipro and doxycycline Microbiology: Blood and urine culture negative CT abdomen pelvis revealed deep soft tissue decubitus ulcerations extending to the initial tuberosities bilaterally. Associated increased sclerosis of the initial tuberosity suggest chronic osteomyelitis Physical examination: Well-developed well-nourished elderly man who is alert in no distress. Head atraumatic normocephalic neck is supple, trachea midline. Chest rise symmetrical, breath sounds clear. Heart: S1-S2. Abdomen soft bowel sounds present. Extremities without cyanosis Assessment: 1. Status post sepsis, present on admission 2. Bilateral ischial tuberosities osteomyelitis with necrotic wound 3. Paraplegia 4. Neurogenic bladder 5. Medical noncompliance Plan: Patient remains clinically unchanged he needs debridement of his wounds however he refused, he is also refusing IV antibiotics. Continue present care, consider discharge back to SNF since pt is refusing treatments Consultation Date/Type/Reason Admit Date/Time Jan 03, 2019 at 02:19 Initial Consult Date 01/03/19 Type of Consult id Requesting Provider: ALANNA BRIZUELA Date/Time of Note DATE: 01/12/19 TIME: 15:56 Exam/Review of Systems Exam Vitals Vital Signs Date Temp Pulse Resp B/P (MAP) Pulse Ox O2 O2 Flow FiO2 Time Delivery Rate 01/12/19 94 121/81 02:29 (94) 01/11/19 98.0 18 94 20:05 01/11/19 Room Air 14:00 Intake and Output 01/11/19 01/11/19 01/12/19 1515:00 23:00 07:00 IntakeIntake Total 560 ml 840 ml 400 ml OutputOutput Total 2400 ml 1000 ml BalanceBalance 560 ml -1560 ml -600 ml Results Results 24hrs Laboratory Tests Test 01/11/19 17:45 01/11/19 21:10 01/12/19 02:03 01/12/19 11:44 Bedside Glucose 175 187 328 H 146 Medications Medication Current Medications Sodium Chloride 1,000 ml @ 100 mls/hr Q10H IV Last administered on 01/04/19at 21:03; Admin Dose 100 MLS/HR; Start 01/03/19 at 04:51 IV Flush (NS 3 ml) 3 ml PER PROTOCOL IV ; Start 01/03/19 at 05:00 Ondansetron HCl (Zofran Inj) 4 mg Q6H PRN IV NAUSEA/VOMITING; Start 01/03/19 at 05:00 Acetaminophen (Tylenol Tab) 650 mg Q6H PRN PO .PAIN 1-3 OR TEMP Last administered on 01/12/19at 15:30; Admin Dose 650 MG; Start 01/03/19 at 05:00 Acetaminophen/ Hydrocodone Bitart ([place] (5/325)) 1 tab Q6H PRN PO .PAIN 4-6 Last administered on 01/12/19 05:59; Admin Dose 1 TAB; Start 01/03/19 at 05:00 Morphine Sulfate (morphine) 2 mg Q4H PRN IV .PAIN 7-10 Last administered on 01/03/19at 11:13; Admin Dose 2 MG; Start 01/03/19 at 05:00 Miscellaneous Information 1 ea NOTE XX ; Start 01/03/19 at 05:00 Glucose (Glutose) 15 gm Q15M PRN PO DECREASED GLUCOSE; Start 01/03/19 at 05:00 Glucose (Glutose) 22.5 gm Q15M PRN PO DECREASED GLUCOSE; Start 01/03/19 at 05:00 Dextrose (D50w Syringe) 25 ml Q15M PRN IV DECREASED GLUCOSE; Start 01/03/19 at 05:00 Dextrose (D50w Syringe) 50 ml Q15M PRN IV DECREASED GLUCOSE; Start 01/03/19 at 05:00 Glucagon (Glucagen) 1 mg Q15M PRN IM DECREASED GLUCOSE; Start 01/03/19 at 05:00 Glucose (Glutose) 15 gm Q15M PRN BUCCAL DECREASED GLUCOSE; Start 01/03/19 at 05:00 Diagnostic Test (Pha) (Accu-Chek) 1 ea 02 XX ; Start 01/04/19 at 02:00 Diagnostic Test (Pha) (Accu-Chek) 1 ea 2 HOURS AFTER MEALS XX Last administered on 01/04/19at 10:53; Admin Dose 1 EA; Start 01/03/19 at 10:00 Insulin Aspart (Novolog Insulin Pen) NOVOLOG *MILD* ALGORITHM WITH MEALS BEDTIME SC Last administered on 01/12/19at 12:13; Admin Dose 1 UNIT; Start 01/03/19 at 12:00 [facility] This patient sanchez... PRN PRN XX WOUND CARE; Start 01/03/19 at 20:00 Levothyroxine Sodium (Synthroid) 75 mcg DAILY@06 PO Last administered on 01/11/19 06:00; Admin Dose 75 MCG; Start 01/05/19 at 06:00 Metformin HCl (Glucophage) 850 mg BID WITH MEALS PO Last administered on 01/11/19 17:48; Admin Dose 850 MG; Start 01/04/19 at 17:55 Nateglinide (Starlix) 60 mg AC MEALS PO Last administered on 01/12/19 12:14; Admin Dose 60 MG; Start 01/04/19 at 11:20 Diagnostic Test (Pha) (Accu-Chek) 1 ea AC MEALS AND BEDTIME XX Last administered on 01/12/19 12:17; Admin Dose 1 EA; Start 01/04/19 at 11:20 Famotidine (Pepcid) 20 mg BID PO Last administered on 01/12/19 12:18; Admin Dose 20 MG; Start 01/04/19 at 11:30 Sodium Hypochlorite (Dakin'S (Dilute 140)) 1 applic BID IRR Last administered on 01/12/19 12:25; Admin Dose 1 APPLIC; Start 01/05/19 at 13:00 Nystatin (Nystatin Powder) 1 applic BID TOP Last administered on 01/12/19 12:25; Admin Dose 1 APPLIC; Start 01/05/19 at 21:00 Heparin Sodium (Porcine) (Heparin (5000 Units/1ml)) 5,000 unit BID SC Last administered on 01/12/19 12:13; Admin Dose 5,000 UNIT; Start 01/06/19 at 14:30 Doxycycline Hyclate (Vibramycin) 100 mg BID PO Last administered on 01/12/19 12:18; Admin Dose 100 MG; Start 01/06/19 at 21:00 Ciprofloxacin (Cipro) 500 mg BID@18 PO Last administered on 01/12/19 06:00; Admin Dose 500 MG; Start 01/06/19 at 18:00 Clotrimazole (Lotrimin Cr) 1 applic BID TOP Last administered on 2/25/19at 12:25; Admin Dose 1 APPLIC; Start 01/09/19 at 21:00 Insulin Glargine (Lantus) 25 units DAILY@2000 SC Last administered on 01/11/19at 21:13; Admin Dose 25 UNITS; Start 01/10/19 at 20:00 SUZANNE HANCOCK NP Jan 12, 2019 15:57
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
[2019-01-12 19:57] VITALS: BP 101/64; PULSE 76; RESP 18
[2019-01-12] MEDS: INSULIN GLARGINE [LANTus] (100 UNITS/ML) SYG SC SCH (21:39)
[2019-01-13] MEDS: ACCU-CHEK XX SCH ×8 (01:05→20:43)
[2019-01-13] MEDS: SOD CHLORIDE 0.9% 1,000 ML IV SCH ×2 (04:51→14:51)
[2019-01-13] MEDS: LEVOTHYROXINE 75 MCG TAB PO SCH (06:00)
[2019-01-13] MEDS: HYDROCODONE/APAP (5/325) TAB PO PRN (06:17)
[2019-01-13] MEDS: CIPROFLOXACIN 500 MG TAB PO SCH ×2 (06:17→18:00)
[2019-01-13] MEDS: NATEGLINIDE 60 MG TAB PO SCH ×3 (07:30→17:35)
[2019-01-13] MEDS: metFORMIN 850 MG TAB PO SCH ×2 (08:00→18:05)
[2019-01-13] MEDS: INSULIN ASPART [NOVOLOG] 3 ML PEN SC SCH ×4 (08:00→20:27)
[2019-01-13] MEDS: FAMOTIDINE 20 MG TAB PO SCH ×2 (09:00→21:00)
[2019-01-13] MEDS: HEPARIN 5,000 UNIT/1 ML VIAL SC SCH ×2 (09:00→21:00)
[2019-01-13] MEDS: CLOTRIMAZOLE 1% 30 GM CR TOP SCH (09:00)
[2019-01-13] MEDS: DOXYCYCLINE 100 MG TAB PO SCH ×2 (09:00→21:55)
[2019-01-13] MEDS: NYSTATIN 30 GM POWDER BTL TOP SCH (09:00)
[2019-01-13] MEDS: SODIUM HYPOCHLORITE (1/40) 1 APPLIC BTL IRR SCH (09:00)
--- NOTE | 2019-01-13 15:01 | CONS ---
Assessment/Plan Assessment/Plan Hospital Course (Demo Recall) Patient is alert, looks comfortable, no fevers overnight Abx: oral Cipro and doxycycline Microbiology: Blood and urine culture negative CT abdomen pelvis revealed deep soft tissue decubitus ulcerations extending to the initial tuberosities bilaterally. Associated increased sclerosis of the initial tuberosity suggest chronic osteomyelitis Physical examination: Well-developed well-nourished elderly man who is alert in no distress. Head atraumatic normocephalic neck is supple, trachea midline. Chest rise symmetrical, breath sounds clear. Heart: S1-S2. Abdomen soft bowel sounds present. Extremities without cyanosis Assessment: 1. Status post sepsis, present on admission 2. Bilateral ischial tuberosities osteomyelitis with necrotic wound 3. Paraplegia 4. Neurogenic bladder 5. Medical noncompliance Plan: Patient remains stable, refusing debridement and PICC, continue present care Consultation Date/Type/Reason Admit Date/Time Jan 03, 2019 at 02:19 Initial Consult Date 01/03/19 Type of Consult id Requesting Provider: ALANNA BRIZUELA Date/Time of Note DATE: 01/13/19 TIME: 15:00 Exam/Review of Systems Exam Vitals Vital Signs Date Temp Pulse Resp B/P (MAP) Pulse Ox O2 O2 Flow FiO2 Time Delivery Rate 01/12/19 99.3 76 18 101/64 95 19:57 (76) 01/11/19 Room Air 14:00 Intake and Output 01/12/19 01/12/19 01/13/19 1515:00 23:00 07:00 IntakeIntake Total 850 ml 100 ml OutputOutput Total 1500 ml 800 ml 1000 ml BalanceBalance -1500 ml 50 ml -900 ml Results Results 24hrs Laboratory Tests Test 01/12/19 17:31 01/12/19 21:33 01/13/19 12:00 01/13/19 14:36 Bedside Glucose 261 H 177 148 319 H Medications Medication Current Medications Sodium Chloride 1,000 ml @ 100 mls/hr Q10H IV Last administered on 01/04/19at 21:03; Admin Dose 100 MLS/HR; Start 01/03/19 at 04:51 IV Flush (NS 3 ml) 3 ml PER PROTOCOL IV ; Start 01/03/19 at 05:00 Ondansetron HCl (Zofran Inj) 4 mg Q6H PRN IV NAUSEA/VOMITING; Start 01/03/19 at 05:00 Acetaminophen (Tylenol Tab) 650 mg Q6H PRN PO .PAIN 1-3 OR TEMP Last administered on 01/12/19at 15:30; Admin Dose 650 MG; Start 01/03/19 at 05:00 Acetaminophen/ Hydrocodone Bitart ([place] (5/325)) 1 tab Q6H PRN PO .PAIN 4-6 Last administered on 01/13/19at 06:17; Admin Dose 1 TAB; Start 01/03/19 at 05:00 Morphine Sulfate (morphine) 2 mg Q4H PRN IV .PAIN 7-10 Last administered on 01/03/19at 11:13; Admin Dose 2 MG; Start 01/03/19 at 05:00 Miscellaneous Information 1 ea NOTE XX ; Start 01/03/19 at 05:00 Glucose (Glutose) 15 gm Q15M PRN PO DECREASED GLUCOSE; Start 01/03/19 at 05:00 Glucose (Glutose) 22.5 gm Q15M PRN PO DECREASED GLUCOSE; Start 01/03/19 at 05:00 Dextrose (D50w Syringe) 25 ml Q15M PRN IV DECREASED GLUCOSE; Start 01/03/19 at 05:00 Dextrose (D50w Syringe) 50 ml Q15M PRN IV DECREASED GLUCOSE; Start 01/03/19 at 05:00 Glucagon (Glucagen) 1 mg Q15M PRN IM DECREASED GLUCOSE; Start 01/03/19 at 05:00 Glucose (Glutose) 15 gm Q15M PRN BUCCAL DECREASED GLUCOSE; Start 01/03/19 at 05:00 Diagnostic Test (Pha) (Accu-Chek) 1 ea 02 XX ; Start 01/04/19 at 02:00 Diagnostic Test (Pha) (Accu-Chek) 1 ea 2 HOURS AFTER MEALS XX Last administered on 01/04/19at 10:53; Admin Dose 1 EA; Start 01/03/19 at 10:00 Insulin Aspart (Novolog Insulin Pen) NOVOLOG *MILD* ALGORITHM WITH MEALS BEDTIME SC Last administered on 01/13/19at 12:08; Admin Dose 1 UNIT; Start 01/03/19 at 12:00 Miscellaneous Information (Pending [facility] Order For Wound Care) This patient sanchez... PRN PRN XX WOUND CARE; Start 01/03/19 at 20:00 Levothyroxine Sodium (Synthroid) 75 mcg DAILY@06 PO Last administered on 01/11/19 06:00; Admin Dose 75 MCG; Start 01/05/19 at 06:00 Metformin HCl (Glucophage) 850 mg BID WITH MEALS PO Last administered on 01/12/19 17:33; Admin Dose 850 MG; Start 01/04/19 at 17:55 Nateglinide (Starlix) 60 mg AC MEALS PO Last administered on 01/13/19 12:08; Admin Dose 60 MG; Start 01/04/19 at 11:20 Diagnostic Test (Pha) (Accu-Chek) 1 ea AC MEALS AND BEDTIME XX Last administered on 01/12/19 17:32; Admin Dose 1 EA; Start 01/04/19 at 11:20 Famotidine (Pepcid) 20 mg BID PO Last administered on 01/12/19 21:37; Admin Dose 20 MG; Start 01/04/19 at 11:30 Sodium Hypochlorite (Dakin'S (Dilute )) 1 applic BID IRR Last administered on 01/12/19 12:25; Admin Dose 1 APPLIC; Start 01/05/19 at 13:00 Nystatin (Nystatin Powder) 1 applic BID TOP Last administered on 01/12/19 12:25; Admin Dose 1 APPLIC; Start 01/05/19 at 21:00 Heparin Sodium (Porcine) (Heparin (5000 Units/1ml)) 5,000 unit BID SC Last administered on 01/12/19 12:13; Admin Dose 5,000 UNIT; Start 01/06/19 at 14:30 Doxycycline Hyclate (Vibramycin) 100 mg BID PO Last administered on 01/12/19 21:37; Admin Dose 100 MG; Start 01/06/19 at 21:00 Ciprofloxacin (Cipro) 500 mg BID@18 PO Last administered on 01/13/19 06:17; Admin Dose 500 MG; Start 01/06/19 at 18:00 Clotrimazole (Lotrimin Cr) 1 applic BID TOP Last administered on 01/12/19 12:25; Admin Dose 1 APPLIC; Start 01/09/19 at 21:00 Insulin Glargine (Lantus) 25 units DAILY@2000 SC Last administered on 01/12/19at 21:39; Admin Dose 25 UNITS; Start 01/10/19 at 20:00 SUZANNE HANCOCK NP Jan 13, 2019 15:01
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
[2019-01-13 20:00] VITALS: BP 119/75; PULSE 80; RESP 18
[2019-01-13] MEDS: INSULIN GLARGINE [LANTus] (100 UNITS/ML) SYG SC SCH (20:27)
[2019-01-13] MEDS: ACETAMINOPHEN 325 MG TAB PO PRN (20:29)
[2019-01-14] MEDS: SODIUM HYPOCHLORITE (1/40) 1 APPLIC BTL IRR SCH ×2 (00:10→09:00)
[2019-01-14] MEDS: NYSTATIN 30 GM POWDER BTL TOP SCH ×2 (00:11→09:00)
[2019-01-14] MEDS: CLOTRIMAZOLE 1% 30 GM CR TOP SCH ×2 (00:11→09:00)
[2019-01-14] MEDS: SOD CHLORIDE 0.9% 1,000 ML IV SCH ×3 (00:51→20:51)
[2019-01-14 02:00] VITALS: BP 104/67; PULSE 74; RESP 18
[2019-01-14] MEDS: ACCU-CHEK XX SCH ×8 (02:17→21:00)
[2019-01-14] MEDS: LEVOTHYROXINE 75 MCG TAB PO SCH (06:00)
[2019-01-14] MEDS: NATEGLINIDE 60 MG TAB PO SCH ×3 (07:30→17:09)
[2019-01-14] MEDS: INSULIN ASPART [NOVOLOG] 3 ML PEN SC SCH ×4 (08:00→21:01)
[2019-01-14] MEDS: HEPARIN 5,000 UNIT/1 ML VIAL SC SCH ×2 (09:00→22:06)
[2019-01-14] MEDS: FAMOTIDINE 20 MG TAB PO SCH ×2 (09:00→22:08)
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
[2019-01-14] MEDS: CIPROFLOXACIN 500 MG TAB PO SCH ×2 (11:34→17:09)
[2019-01-14] MEDS: metFORMIN 850 MG TAB PO SCH ×2 (11:34→17:09)
[2019-01-14] MEDS: DOXYCYCLINE 100 MG TAB PO SCH ×2 (11:34→22:05)
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
[2019-01-14] MEDS: ACETAMINOPHEN 325 MG TAB PO PRN (15:41)
[2019-01-14 20:34] VITALS: BP 120/75; PULSE 85; RESP 20
[2019-01-14] MEDS: HYDROCODONE/APAP (5/325) TAB PO PRN (20:55)
[2019-01-14] MEDS: INSULIN GLARGINE [LANTus] (100 UNITS/ML) SYG SC SCH (21:00)
[2019-01-15] MEDS: ACCU-CHEK XX SCH ×8 (02:00→21:12)
[2019-01-15] MEDS: NYSTATIN 30 GM POWDER BTL TOP SCH ×2 (02:13→11:53)
[2019-01-15] MEDS: CLOTRIMAZOLE 1% 30 GM CR TOP SCH ×2 (02:13→11:53)
[2019-01-15] MEDS: SODIUM HYPOCHLORITE (1/40) 1 APPLIC BTL IRR SCH ×2 (02:14→11:53)
[2019-01-15 02:29] VITALS: BP 131/86; PULSE 94; RESP 18
[2019-01-15] MEDS: LEVOTHYROXINE 75 MCG TAB PO SCH (06:39)
[2019-01-15] MEDS: CIPROFLOXACIN 500 MG TAB PO SCH ×2 (06:39→18:39)
[2019-01-15] MEDS: SOD CHLORIDE 0.9% 1,000 ML IV SCH ×2 (06:51→15:42)
[2019-01-15] MEDS: NATEGLINIDE 60 MG TAB PO SCH ×3 (07:30→18:39)
[2019-01-15] MEDS: metFORMIN 850 MG TAB PO SCH ×2 (08:00→18:39)
[2019-01-15] MEDS: INSULIN ASPART [NOVOLOG] 3 ML PEN SC SCH ×4 (08:00→21:04)
[2019-01-15] MEDS: ACETAMINOPHEN 325 MG TAB PO PRN (10:40)
[2019-01-15 11:15] VITALS: BP 119/75; PULSE 83; RESP 18
[2019-01-15] MEDS: DOXYCYCLINE 100 MG TAB PO SCH ×2 (11:50→21:07)
[2019-01-15] MEDS: HEPARIN 5,000 UNIT/1 ML VIAL SC SCH ×2 (11:51→21:00)
[2019-01-15] MEDS: FAMOTIDINE 20 MG TAB PO SCH ×2 (11:52→21:00)
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
[2019-01-15 14:48] VITALS: BP 115/65; PULSE 84; RESP 18
--- NOTE | 2019-01-15 16:32 | CONS ---
Assessment/Plan Assessment/Plan Hospital Course (Demo Recall) No changes, looks comfortable, no fevers Abx: Cipro and doxycycline Microbiology: Blood and urine culture negative CT abdomen pelvis revealed deep soft tissue decubitus ulcerations extending to the initial tuberosities bilaterally. Associated increased sclerosis of the initial tuberosity suggest chronic osteomyelitis Physical examination: Well-developed well-nourished elderly man who is alert in no distress. Head atraumatic normocephalic neck is supple, trachea midline. Chest rise symmetrical, breath sounds clear. Heart: S1-S2. Abdomen soft bowel sounds present. Extremities without cyanosis Assessment: 1. Status post sepsis, present on admission 2. Bilateral ischial tuberosities osteomyelitis with necrotic wound 3. Paraplegia 4. Neurogenic bladder 5. Medical noncompliance Plan: Patient remains stable, refusing debridement and PICC, pending dc arrangements Consultation Date/Type/Reason Admit Date/Time Jan 03, 2019 at 02:19 Initial Consult Date 01/03/19 Type of Consult id Requesting Provider: ALANNA BRIZUELA Date/Time of Note DATE: 01/15/19 TIME: 16:31 Exam/Review of Systems Exam Vitals Vital Signs Date Temp Pulse Resp B/P (MAP) Pulse Ox O2 O2 Flow FiO2 Time Delivery Rate 01/15/19 97.8 84 18 115/65 95 14:48 (82) 01/15/19 Room Air 11:15 Intake and Output 01/14/19 01/14/19 01/15/19 1515:00 23:00 07:00 IntakeIntake Total 440 ml 400 ml 250 ml OutputOutput Total 900 ml BalanceBalance 440 ml 400 ml -650 ml Results Results 24hrs Laboratory Tests Test 01/14/19 20:57 01/15/19 10:39 01/15/19 13:04 Bedside Glucose 270 H 221 H 261 H Medications Medication Current Medications Sodium Chloride 1,000 ml @ 100 mls/hr Q10H IV Last administered on 01/04/19at 21:03; Admin Dose 100 MLS/HR; Start 01/03/19 at 04:51 IV Flush (NS 3 ml) 3 ml PER PROTOCOL IV ; Start 01/03/19 at 05:00 Ondansetron HCl (Zofran Inj) 4 mg Q6H PRN IV NAUSEA/VOMITING; Start 01/03/19 at 05:00 Acetaminophen (Tylenol Tab) 650 mg Q6H PRN PO .PAIN 1-3 OR TEMP Last administer ed on 01/15/19at 10:40; Admin Dose 650 MG; Start 01/03/19 at 05:00 Acetaminophen/ Hydrocodone Bitart ([place] (5/325)) 1 tab Q6H PRN PO .PAIN 4-6 Last administered on 01/14/19at 20:55; Admin Dose 1 TAB; Start 01/03/19 at 05:00 Morphine Sulfate (morphine) 2 mg Q4H PRN IV .PAIN 7-10 Last administered on 01/03/19 11:13; Admin Dose 2 MG; Start 01/03/19 at 05:00 Miscellaneous Information 1 ea NOTE XX ; Start 01/03/19 at 05:00 Glucose (Glutose) 15 gm Q15M PRN PO DECREASED GLUCOSE; Start 01/03/19 at 05:00 Glucose (Glutose) 22.5 gm Q15M PRN PO DECREASED GLUCOSE; Start 01/03/19 at 05:00 Dextrose (D50w Syringe) 25 ml Q15M PRN IV DECREASED GLUCOSE; Start 01/03/19 at 05:00 Dextrose (D50w Syringe) 50 ml Q15M PRN IV DECREASED GLUCOSE; Start 01/03/19 at 05:00 Glucagon (Glucagen) 1 mg Q15M PRN IM DECREASED GLUCOSE; Start 01/03/19 at 05:00 Glucose (Glutose) 15 gm Q15M PRN BUCCAL DECREASED GLUCOSE; Start 01/03/19 at 05:00 Diagnostic Test (Pha) (Accu-Chek) 1 ea 02 XX Last administered on 01/14/19at 02:17; Admin Dose 1 EA; Start 01/04/19 at 02:00 Diagnostic Test (Pha) (Accu-Chek) 1 ea 2 HOURS AFTER MEALS XX Last administered on 01/14/19at 20:56; Admin Dose 1 EA; Start 01/03/19 at 10:00 Insulin Aspart (Novolog Insulin Pen) NOVOLOG *MILD* ALGORITHM WITH MEALS BEDTIME SC Last administered on 01/15/19at 10:43; Admin Dose 3 UNIT; Start 01/03/19 at 12:00 Miscellaneous Information (Pending [facility] Order For Wound Care) This patient sanchez... PRN PRN XX WOUND CARE; Start 01/03/19 at 20:00 Levothyroxine Sodium (Synthroid) 75 mcg DAILY@06 PO Last administered on 01/15/19 06:39; Admin Dose 75 MCG; Start 01/05/19 at 06:00 Metformin HCl (Glucophage) 850 mg BID WITH MEALS PO Last administered on 01/14/19 11:34; Admin Dose 850 MG; Start 01/04/19 at 17:55 Nateglinide (Starlix) 60 mg AC MEALS PO Last administered on 01/15/19 11:50; Admin Dose 60 MG; Start 01/04/19 at 11:20 Diagnostic Test (Pha) (Accu-Chek) 1 ea AC MEALS AND BEDTIME XX Last administered on 01/14/19 21:00; Admin Dose 1 EA; Start 01/04/19 at 11:20 Famotidine (Pepcid) 20 mg BID PO Last administered on 01/14/19 22:08; Admin Dose 20 MG; Start 01/04/19 at 11:30 Sodium Hypochlorite (Dakin'S (Dilute 40)) 1 applic BID IRR Last administered on 01/15/19 02:14; Admin Dose 1 APPLIC; Start 01/05/19 at 13:00 Nystatin (Nystatin Powder) 1 applic BID TOP Last administered on 01/15/19 02:13; Admin Dose 1 APPLIC; Start 01/05/19 at 21:00 Heparin Sodium (Porcine) (Heparin (5000 Units/1ml)) 5,000 unit BID SC Last administered on 01/14/19 22:06; Admin Dose 5,000 UNIT; Start 01/06/19 at 14:30 Doxycycline Hyclate (Vibramycin) 100 mg BID PO Last administered on 01/15/19 11:50; Admin Dose 100 MG; Start 01/06/19 at 21:00 Ciprofloxacin (Cipro) 500 mg BID@,18 PO Last administered on 01/15/19 06:39; Admin Dose 500 MG; Start 01/06/19 at 18:00 Clotrimazole (Lotrimin Cr) 1 applic BID TOP Last administered on 01/15/19 02:13; Admin Dose 1 APPLIC; Start 01/09/19 at 21:00 Insulin Glargine (Lantus) 25 units DAILY@1999 SC Last administered on 01/14/19at 21:00; Admin Dose 25 UNITS; Start 01/10/19 at 20:00 SUZANNE HANCOCK NP Jan 15, 2019 16:32
[2019-01-15 20:30] VITALS: BP 126/73; PULSE 89; RESP 18
[2019-01-15] MEDS: INSULIN GLARGINE [LANTus] (100 UNITS/ML) SYG SC SCH (21:03)
[2019-01-16] MEDS: CLOTRIMAZOLE 1% 30 GM CR TOP SCH ×3 (01:22→21:00)
[2019-01-16] MEDS: SODIUM HYPOCHLORITE (1/40) 1 APPLIC BTL IRR SCH ×4 (01:22→21:00)
[2019-01-16] MEDS: NYSTATIN 30 GM POWDER BTL TOP SCH ×4 (01:22→21:00)
[2019-01-16] MEDS: ACCU-CHEK XX SCH ×8 (02:00→21:00)
[2019-01-16 02:39] VITALS: BP 109/72; PULSE 76; RESP 18
[2019-01-16] MEDS: SOD CHLORIDE 0.9% 1,000 ML IV SCH ×3 (02:51→22:51)
[2019-01-16] MEDS: LEVOTHYROXINE 75 MCG TAB PO SCH ×2 (06:00→12:13)
[2019-01-16] MEDS: CIPROFLOXACIN 500 MG TAB PO SCH ×3 (06:00→18:29)
[2019-01-16] MEDS: NATEGLINIDE 60 MG TAB PO SCH ×3 (07:30→18:27)
[2019-01-16] MEDS: metFORMIN 850 MG TAB PO SCH ×3 (08:00→18:29)
[2019-01-16] MEDS: INSULIN ASPART [NOVOLOG] 3 ML PEN SC SCH ×4 (08:00→21:00)
[2019-01-16] MEDS: HEPARIN 5,000 UNIT/1 ML VIAL SC SCH ×2 (09:00→21:00)
[2019-01-16] MEDS: FAMOTIDINE 20 MG TAB PO SCH ×3 (09:00→21:00)
[2019-01-16] MEDS: DOXYCYCLINE 100 MG TAB PO SCH ×3 (09:00→23:45)
[2019-01-16 12:00] VITALS: BP 138/83; PULSE 75; RESP 16
[2019-01-16] MEDS: HYDROCODONE/APAP (5/325) TAB PO PRN (12:09)
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
[2019-01-16 15:26] VITALS: BP 98/61; PULSE 88; RESP 18
[2019-01-16 15:48] VITALS: BP 102/68; PULSE 68
[2019-01-16] MEDS: ACETAMINOPHEN 325 MG TAB PO PRN (16:30)
--- NOTE | 2019-01-16 19:52 | CONS ---
Assessment/Plan Assessment/Plan Hospital Course (Demo Recall) No changes, looks comfortable, no fevers Abx: Cipro and doxycycline Microbiology: Blood and urine culture negative CT abdomen pelvis revealed deep soft tissue decubitus ulcerations extending to the initial tuberosities bilaterally. Associated increased sclerosis of the initial tuberosity suggest chronic osteomyelitis Physical examination: Well-developed well-nourished elderly man who is alert in no distress. Head atraumatic normocephalic neck is supple, trachea midline. Chest rise symmetrical, breath sounds clear. Heart: S1-S2. Abdomen soft bowel sounds present. Extremities without cyanosis Assessment: 1. Status post sepsis, present on admission 2. Bilateral ischial tuberosities osteomyelitis with necrotic wound 3. Paraplegia 4. Neurogenic bladder 5. Medical noncompliance Plan: Patient remains stable, refusing debridement and PICC, pending dc arrangements, f/u wound cx Consultation Date/Type/Reason Admit Date/Time Jan 03, 2019 at 02:19 Initial Consult Date 01/03/19 Type of Consult id Requesting Provider: ALANNA BRIZUELA Date/Time of Note DATE: 01/16/19 TIME: 19:51 Exam/Review of Systems Exam Vitals Vital Signs Date Temp Pulse Resp B/P (MAP) Pulse Ox O2 O2 Flow FiO2 Time Delivery Rate 01/16/19 68 102/68 15:48 (79) 01/16/19 97.3 18 97 Room Air 15:26 Intake and Output 01/15/19 01/15/19 01/16/19 1515:00 23:00 07:00 IntakeIntake Total 600 ml 660 ml 300 ml OutputOutput Total 2100 ml 1650 ml 1500 ml BalanceBalance -1500 ml -990 ml -1200 ml Results Results 24hrs Laboratory Tests Test 01/15/19 21:00 01/16/19 12:16 01/16/19 18:26 Bedside Glucose 199 214 219 Medications Medication Current Medications Sodium Chloride 1,000 ml @ 100 mls/hr Q10H IV Last administered on 01/04/19at 21:03; Admin Dose 100 MLS/HR; Start 01/03/19 at 04:51 IV Flush (NS 3 ml) 3 ml PER PROTOCOL IV ; Start 01/03/19 at 05:00 Ondansetron HCl (Zofran Inj) 4 mg Q6H PRN IV NAUSEA/VOMITING; Start 01/03/19 at 05:00 Acetaminophen (Tylenol Tab) 650 mg Q6H PRN PO .PAIN 1-3 OR TEMP Last administered on 01/16/19at 16:30; Admin Dose 650 MG; Start 01/03/19 at 05:00 Acetaminophen/ Hydrocodone Bitart ([place] (5/325)) 1 tab Q6H PRN PO .PAIN 4-6 Last administered on 01/16/19at 12:09; Admin Dose 1 TAB; Start 01/03/19 at 05:00 Morphine Sulfate (morphine) 2 mg Q4H PRN IV .PAIN 7-10 Last administered on 01/03/19at 11:13; Admin Dose 2 MG; Start 01/03/19 at 05:00 Miscellaneous Information 1 ea NOTE XX ; Start 01/03/19 at 05:00 Glucose (Glutose) 15 gm Q15M PRN PO DECREASED GLUCOSE; Start 01/03/19 at 05:00 Glucose (Glutose) 22.5 gm Q15M PRN PO DECREASED GLUCOSE; Start 01/03/19 at 05:00 Dextrose (D50w Syringe) 25 ml Q15M PRN IV DECREASED GLUCOSE; Start 01/03/19 at 05:00 Dextrose (D50w Syringe) 50 ml Q15M PRN IV DECREASED GLUCOSE; Start 01/03/19 at 05:00 Glucagon (Glucagen) 1 mg Q15M PRN IM DECREASED GLUCOSE; Start 01/03/19 at 05:00 Glucose (Glutose) 15 gm Q15M PRN BUCCAL DECREASED GLUCOSE; Start 01/03/19 at 05:00 Diagnostic Test (Pha) (Accu-Chek) 1 ea 02 XX Last administered on 01/14/19at 02 :17; Admin Dose 1 EA; Start 01/04/19 at 02:00 Diagnostic Test (Pha) (Accu-Chek) 1 ea 2 HOURS AFTER MEALS XX Last administered on 01/15/19at 20:05; Admin Dose 1 EA; Start 01/03/19 at 10:00 Insulin Aspart (Novolog Insulin Pen) NOVOLOG *MILD* ALGORITHM WITH MEALS BEDTIME SC Last administered on 01/16/19at 18:31; Admin Dose 2 UNIT; Start 01/03/19 at 12:00 Miscellaneous Information (Pending [facility] Order For Wound Care) This patient sanchez... PRN PRN XX WOUND CARE; Start 01/03/19 at 20:00 Levothyroxine Sodium (Synthroid) 75 mcg DAILY@06 PO Last administered on 01/16/19 12:13; Admin Dose 75 MCG; Start 01/05/19 at 06:00 Metformin HCl (Glucophage) 850 mg BID WITH MEALS PO Last administered on 01/16/19 18:29; Admin Dose 850 MG; Start 01/04/19 at 17:55 Nateglinide (Starlix) 60 mg AC MEALS PO Last administered on 01/16/19 18:27; Admin Dose 60 MG; Start 01/04/19 at 11:20 Diagnostic Test (Pha) (Accu-Chek) 1 ea AC MEALS AND BEDTIME XX Last administered on 01/15/19 21:12; Admin Dose 1 EA; Start 01/04/19 at 11:20 Famotidine (Pepcid) 20 mg BID PO Last administered on 01/16/19 12:13; Admin Dose 20 MG; Start 01/04/19 at 11:30 Sodium Hypochlorite (Dakin'S (Dilute 40)) 1 applic BID IRR Last administered on 01/16/19 16:30; Admin Dose 1 APPLIC; Start 01/05/19 at 13:00 Nystatin (Nystatin Powder) 1 applic BID TOP Last administered on 01/16/19 16:29; Admin Dose 1 APPLIC; Start 01/05/19 at 21:00 Heparin Sodium (Porcine) (Heparin (5000 Units/1ml)) 5,000 unit BID SC Last administered on 01/14/19 22:06; Admin Dose 5,000 UNIT; Start 01/06/19 at 14:30 Doxycycline Hyclate (Vibramycin) 100 mg BID PO Last administered on 01/16/19 12:13; Admin Dose 100 MG; Start 01/06/19 at 21:00 Ciprofloxacin (Cipro) 500 mg BID@18 PO Last administered on 01/16/19 18:29; Admin Dose 500 MG; Start 01/06/19 at 18:00 Clotrimazole (Lotrimin Cr) 1 applic BID TOP Last administered on 01/16/19 01:22; Admin Dose 1 APPLIC; Start 01/09/19 at 21:00 Insulin Glargine (Lantus) 25 units DAILY@2000 SC Last administered on 01/15/19at 21:03; Admin Dose 25 UNITS; Start 01/10/19 at 20:00 SUZANNE HANCOCK NP Jan 16, 2019 19:52
[2019-01-16] MEDS: INSULIN GLARGINE [LANTus] (100 UNITS/ML) SYG SC SCH (22:31)
[2019-01-17] MEDS: ACCU-CHEK XX SCH ×8 (02:00→21:00)
[2019-01-17] MEDS: CIPROFLOXACIN 500 MG TAB PO SCH ×2 (06:00→17:20)
[2019-01-17] MEDS: LEVOTHYROXINE 75 MCG TAB PO SCH (06:00)
[2019-01-17] MEDS: SOD CHLORIDE 0.9% 1,000 ML IV SCH ×2 (08:51→17:51)
[2019-01-17] MEDS: HEPARIN 5,000 UNIT/1 ML VIAL SC SCH ×2 (09:00→21:00)
[2019-01-17] MEDS: NATEGLINIDE 60 MG TAB PO SCH ×3 (10:31→17:20)
[2019-01-17] MEDS: metFORMIN 850 MG TAB PO SCH ×2 (11:26→17:20)
[2019-01-17] MEDS: INSULIN ASPART [NOVOLOG] 3 ML PEN SC SCH ×4 (11:26→22:28)
[2019-01-17] MEDS: FAMOTIDINE 20 MG TAB PO SCH ×2 (11:27→22:22)
[2019-01-17] MEDS: DOXYCYCLINE 100 MG TAB PO SCH ×2 (11:27→22:22)
[2019-01-17] MEDS: NYSTATIN 30 GM POWDER BTL TOP SCH ×2 (11:28→21:00)
[2019-01-17] MEDS: CLOTRIMAZOLE 1% 30 GM CR TOP SCH ×2 (11:28→21:00)
[2019-01-17] MEDS: SODIUM HYPOCHLORITE (1/40) 1 APPLIC BTL IRR SCH ×2 (11:28→21:00)
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
[2019-01-17] MEDS: ACETAMINOPHEN 325 MG TAB PO PRN ×2 (12:15→22:22)
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
[2019-01-17] MEDS: INSULIN GLARGINE [LANTus] (100 UNITS/ML) SYG SC SCH (22:24)
[2019-01-18] MEDS: ACCU-CHEK XX SCH ×8 (02:00→21:00)
[2019-01-18] MEDS: SOD CHLORIDE 0.9% 1,000 ML IV SCH ×2 (04:51→14:51)
[2019-01-18] MEDS: LEVOTHYROXINE 75 MCG TAB PO SCH (06:00)
[2019-01-18] MEDS: CIPROFLOXACIN 500 MG TAB PO SCH ×2 (06:00→17:35)
[2019-01-18] MEDS: NATEGLINIDE 60 MG TAB PO SCH ×3 (07:30→17:35)
[2019-01-18] MEDS: metFORMIN 850 MG TAB PO SCH ×2 (08:00→17:35)
[2019-01-18] MEDS: INSULIN ASPART [NOVOLOG] 3 ML PEN SC SCH ×4 (08:00→21:58)
[2019-01-18] MEDS: HEPARIN 5,000 UNIT/1 ML VIAL SC SCH ×3 (09:00→21:58)
[2019-01-18] MEDS: FAMOTIDINE 20 MG TAB PO SCH ×3 (09:00→21:55)
[2019-01-18] MEDS: NYSTATIN 30 GM POWDER BTL TOP SCH ×2 (09:00→22:17)
[2019-01-18] MEDS: DOXYCYCLINE 100 MG TAB PO SCH ×2 (09:00→21:55)
[2019-01-18] MEDS: CLOTRIMAZOLE 1% 30 GM CR TOP SCH ×2 (09:00→22:15)
[2019-01-18] MEDS: SODIUM HYPOCHLORITE (1/40) 1 APPLIC BTL IRR SCH ×2 (12:37→22:13)
--- NOTE | 2019-01-18 16:37 | CONS ---
Assessment/Plan Assessment/Plan Hospital Course (Demo Recall) No changes, looks comfortable, no fevers Abx: Cipro and doxycycline Microbiology: Blood and urine culture negative, wound culture growing gram-negat magui rods preliminary CT abdomen pelvis revealed deep soft tissue decubitus ulcerations extending to the initial tuberosities bilaterally. Associated increased sclerosis of the initial tuberosity suggest chronic osteomyelitis Physical examination: Well-developed well-nourished elderly man who is alert in no distress. Head atraumatic normocephalic neck is supple, trachea mi dline. Chest rise symmetrical, breath sounds clear. Heart: S1-S2. Abdomen soft bowel sounds present. Extremities without cyanosis Assessment: 1. Status post sepsis, present on admission 2. Bilateral ischial tuberosities osteomyelitis with necrotic wound 3. Paraplegia 4. Neurogenic bladder 5. Medical noncompliance Plan: Patient remains stable, refusing debridement and PICC, pending dc arrangements, f/u wound cx Consultation Date/Type/Reason Admit Date/Time Jan 03, 2019 at 02:19 Initial Consult Date 01/03/19 Type of Consult id Requesting Provider: ALANNA BRIZUELA Date/Time of Note DATE: 01/18/19 TIME: 16:36 Exam/Review of Systems Exam Vitals Vital Signs Date Temp Pulse Resp B/P (MAP) Pulse Ox O2 O2 Flow FiO2 Time Delivery Rate 01/16/19 68 102/68 15:48 (79) 01/16/19 97.3 18 97 Room Air 15:26 Intake and Output 01/17/19 01/17/19 01/18/19 1515:00 23:00 07:00 IntakeIntake Total 480 ml 1080 ml OutputOutput Total 3150 ml BalanceBalance 480 ml -2070 ml Results Results 24hrs Laboratory Tests Test 01/17/19 17:19 01/17/19 22:16 01/18/19 12:42 01/18/19 14:32 Bedside Glucose 130 266 H 169 248 H Medications Medication Current Medications Sodium Chloride 1,000 ml @ 100 mls/hr Q10H IV Last administered on 01/04/19at 21:03; Admin Dose 100 MLS/HR; Start 01/03/19 at 04:51 IV Flush (NS 3 ml) 3 ml PER PROTOCOL IV ; Start 01/03/19 at 05:00 Ondansetron HCl (Zofran Inj) 4 mg Q6H PRN IV NAUSEA/VOMITING; Start 01/03/19 at 05:00 Acetaminophen (Tylenol Tab) 650 mg Q6H PRN PO .PAIN 1-3 OR TEMP Last administered on 01/17/19 22:22; Admin Dose 650 MG; Start 01/03/19 at 05:00 Acetaminophen/ Hydrocodone Bitart ([place] (5/325)) 1 tab Q6H PRN PO .PAIN 4-6 Last administered on 01/16/19 12:09; Admin Dose 1 TAB; Start 01/03/19 at 05:00 Morphine Sulfate (morphine) 2 mg Q4H PRN IV .PAIN 7-10 Last administered on 01/03/19 11:13; Admin Dose 2 MG; Start 01/03/19 at 05:00 Miscellaneous Information 1 ea NOTE XX ; Start 01/03/19 at 05:00 Glucose (Glutose) 15 gm Q15M PRN PO DECREASED GLUCOSE; Start 01/03/19 at 05:00 Glucose (Glutose) 22.5 gm Q15M PRN PO DECREASED GLUCOSE; Start 01/03/19 at 05:00 Dextrose (D50w Syringe) 25 ml Q15M PRN IV DECREASED GLUCOSE; Start 01/03/19 at 05:00 Dextrose (D50w Syringe) 50 ml Q15M PRN IV DECREASED GLUCOSE; Start 01/03/19 at 05:00 Glucagon (Glucagen) 1 mg Q15M PRN IM DECREASED GLUCOSE; Start 01/03/19 at 05:00 Glucose (Glutose) 15 gm Q15M PRN BUCCAL DECREASED GLUCOSE; Start 01/03/19 at 05:00 Diagnostic Test (Pha) (Accu-Chek) 1 ea 02 XX Last administered on 01/14/19 02:17; Admin Dose 1 EA; Start 01/04/19 at 02:00 Diagnostic Test (Pha) (Accu-Chek) 1 ea 2 HOURS AFTER MEALS XX Last administered on 01/18/19 14:00; Admin Dose 1 EA; Start 01/03/19 at 10:00 Insulin Aspart (Novolog Insulin Pen) NOVOLOG *MILD* ALGORITHM WITH MEALS BEDTIME SC Last administered on 01/18/19 12:46; Admin Dose 1 UNIT; Start 12/19 05/06 at 12:00 Miscellaneous Information (Pending [facility] Order For Wound Care) This patient sanchez... PRN PRN XX WOUND CARE; Start 01/03/19 at 20:00 Levothyroxine Sodium (Synthroid) 75 mcg DAILY@06 PO Last administered on 01/16/19 12:13; Admin Dose 75 MCG; Start 01/05/19 at 06:00 Metformin HCl (Glucophage) 850 mg BID WITH MEALS PO Last administered on 01/17/19 17:20; Admin Dose 850 MG; Start 01/04/19 at 17:55 Nateglinide (Starlix) 60 mg AC MEALS PO Last administered on 01/18/19 12:43; Admin Dose 60 MG; Start 01/04/19 at 11:20 Diagnostic Test (Pha) (Accu-Chek) 1 ea AC MEALS AND BEDTIME XX Last administered on 01/18/19 11:30; Admin Dose 1 EA; Start 01/04/19 at 11:20 Famotidine (Pepcid) 20 mg BID PO Last administered on 01/17/19 22:22; Admin Dose 20 MG; Start 01/04/19 at 11:30 Sodium Hypochlorite (Dakin'S (Dilute 140)) 1 applic BID IRR Last administered on 01/18/19 12:37; Admin Dose 1 APPLIC; Start 01/05/19 at 13:00 Nystatin (Nystatin Powder) 1 applic BID TOP Last administered on 01/17/19 11:28; Admin Dose 1 APPLIC; Start 01/05/19 at 21:00 Heparin Sodium (Porcine) (Heparin (5000 Units/1ml)) 5,000 unit BID SC Last administered on 01/14/19 22:06; Admin Dose 5,000 UNIT; Start 01/06/19 at 14:30 Doxycycline Hyclate (Vibramycin) 100 mg BID PO Last administered on 01/17/19 22:22; Admin Dose 100 MG; Start 01/06/19 at 21:00 Ciprofloxacin (Cipro) 500 mg BID@06,18 PO Last administered on 01/17/19 17:20; Admin Dose 500 MG; Start 01/06/19 at 18:00 Clotrimazole (Lotrimin Cr) 1 applic BID TOP Last administered on 01/17/19 11:28; Admin Dose 1 APPLIC; Start 01/09/19 at 21:00 Insulin Glargine (Lantus) 25 units DAILY@2000 SC Last administered on 01/17/19at 22:24; Admin Dose 25 UNITS; Start 01/10/19 at 20:00 SUZANNE HANCOCK NP Jan 18, 2019 16:37
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
[2019-01-18 19:58] VITALS: BP 130/69; PULSE 83; RESP 18
[2019-01-18] MEDS: INSULIN GLARGINE [LANTus] (100 UNITS/ML) SYG SC SCH (21:59)
[2019-01-19] MEDS: SOD CHLORIDE 0.9% 1,000 ML IV SCH ×3 (00:51→20:51)
[2019-01-19] MEDS: ACCU-CHEK XX SCH ×8 (01:20→21:00)
[2019-01-19 01:53] VITALS: BP 128/77; PULSE 84; RESP 18
[2019-01-19] MEDS: CIPROFLOXACIN 500 MG TAB PO SCH ×2 (05:57→17:19)
[2019-01-19] MEDS: LEVOTHYROXINE 75 MCG TAB PO SCH (06:00)
[2019-01-19] MEDS: NATEGLINIDE 60 MG TAB PO SCH ×3 (07:30→17:19)
[2019-01-19] MEDS: INSULIN ASPART [NOVOLOG] 3 ML PEN SC SCH ×4 (08:00→21:00)
[2019-01-19] MEDS: FAMOTIDINE 20 MG TAB PO SCH ×2 (09:00→21:00)
--- NOTE | 2019-01-19 10:50 | CONS ---
Assessment/Plan Assessment/Plan Hospital Course (Demo Recall) No changes, looks comfortable Abx: Cipro and doxycycline Microbiology: Blood and urine culture negative, wound culture growing gram-nega tive rods preliminary CT abdomen pelvis revealed deep soft tissue decubitus ulcerations extending to the initial tuberosities bilaterally. Associated increased sclerosis of the initial tuberosity suggest chronic osteomyelitis Physical examination: Well-developed well-nourished elderly man who is alert in no distress. Head atraumatic normocephalic neck is supple, trachea midline. Chest rise symmetrical, breath sounds clear. Heart: S1-S2. Abdomen soft bowel sounds present. Extremities without cyanosis Assessment: 1. Status post sepsis, present on admission 2. Bilateral ischial tuberosities osteomyelitis with necrotic wound 3. Paraplegia 4. Neurogenic bladder 5. Medical noncompliance Plan: Patient remains unchanged, pending wound cultures, pending discharge arrangements Consultation Date/Type/Reason Admit Date/Time Jan 03, 2019 at 02:19 Initial Consult Date 01/03/19 Type of Consult id Requesting Provider: ALANNA BRIZUELA Date/Time of Note DATE: 01/19/19 TIME: 10:49 Exam/Review of Systems Exam Vitals Vital Signs Date Temp Pulse Resp B/P (MAP) Pulse Ox O2 O2 Flow FiO2 Time Delivery Rate 01/19/19 97.7 84 18 128/77 97 01:53 (94) 01/16/19 Room Air 15:26 Intake and Output 01/18/19 01/18/19 01/19/19 1515:00 23:00 07:00 IntakeIntake Total 880 ml 670 ml OutputOutput Total 3300 ml 1200 ml BalanceBalance -2420 ml -530 ml Results Results 24hrs Laboratory Tests Test 01/18/19 12:42 01/18/19 14:32 01/18/19 16:56 01/18/19 19:06 Bedside Glucose 169 248 H 264 H 304 H Test 01/18/19 21:54 01/19/19 01:18 Bedside Glucose 186 231 H Medications Medication Current Medications Sodium Chloride 1,000 ml @ 100 mls/hr Q10H IV Last administered on 01/04/19at 21:03; Admin Dose 100 MLS/HR; Start 01/03/19 at 04:51 IV Flush (NS 3 ml) 3 ml PER PROTOCOL IV ; Start 01/03/19 at 05:00 Ondansetron HCl (Zofran Inj) 4 mg Q6H PRN IV NAUSEA/VOMITING; Start 01/03/19 at 05:00 Acetaminophen (Tylenol Tab) 650 mg Q6H PRN PO .PAIN 1-3 OR TEMP Last administered on 01/17/19 22:22; Admin Dose 650 MG; Start 01/03/19 at 05:00 Acetaminophen/ Hydrocodone Bitart ([place] (5/325)) 1 tab Q6H PRN PO .PAIN 4-6 Last administered on 01/16/19 12:09; Admin Dose 1 TAB; Start 01/03/19 at 05:00 Morphine Sulfate (morphine) 2 mg Q4H PRN IV .PAIN 7-10 Last administered on 01/03/19 11:13; Admin Dose 2 MG; Start 01/03/19 at 05:00 Miscellaneous Information 1 ea NOTE XX ; Start 01/03/19 at 05:00 Glucose (Glutose) 15 gm Q15M PRN PO DECREASED GLUCOSE; Start 01/03/19 at 05:00 Glucose (Glutose) 22.5 gm Q15M PRN PO DECREASED GLUCOSE; Start 01/03/19 at 05:00 Dextrose (D50w Syringe) 25 ml Q15M PRN IV DECREASED GLUCOSE; Start 01/03/19 at 05:00 Dextrose (D50w Syringe) 50 ml Q15M PRN IV DECREASED GLUCOSE; Start 01/03/19 at 05:00 Glucagon (Glucagen) 1 mg Q15M PRN IM DECREASED GLUCOSE; Start 01/03/19 at 05:00 Glucose (Glutose) 15 gm Q15M PRN BUCCAL DECREASED GLUCOSE; Start 01/03/19 at 05:00 Diagnostic Test (Pha) (Accu-Chek) 1 ea 02 XX Last administered on 01/14/19 02:17; Admin Dose 1 EA; Start 01/04/19 at 02:00 Diagnostic Test (Pha) (Accu-Chek) 1 ea 2 HOURS AFTER MEALS XX Last administered on 01/18/19 14:00; Admin Dose 1 EA; Start 01/03/19 at 10:00 Insulin Aspart (Novolog Insulin Pen) NOVOLOG *MILD* ALGORITHM WITH MEALS BEDTIME SC Last administered on 01/18/19 21:58; Admin Dose 1 UNIT; Start 01/03/19 at 12:00 Miscellaneous Information (Pending [facility] Order For Wound Care) This patient sanchez... PRN PRN XX WOUND CARE; Start 01/03/19 at 20:00 Levothyroxine Sodium (Synthroid) 75 mcg DAILY@06 PO Last administered on 01/16/19 12:13; Admin Dose 75 MCG; Start 01/05/19 at 06:00 Metformin HCl (Glucophage) 850 mg BID WITH MEALS PO Last administered on 01/18/19 17:35; Admin Dose 850 MG; Start 01/04/19 at 17:55 Nateglinide (Starlix) 60 mg AC MEALS PO Last administered on 01/18/19 17:35; Admin Dose 60 MG; Start 01/04/19 at 11:20 Diagnostic Test (Pha) (Accu-Chek) 1 ea AC MEALS AND BEDTIME XX Last administered on 01/18/19 17:41; Admin Dose 1 EA; Start 01/04/19 at 11:20 Famotidine (Pepcid) 20 mg BID PO Last administered on 01/17/19 22:22; Admin Dose 20 MG; Start 01/04/19 at 11:30 Sodium Hypochlorite (Dakin'S (Dilute )) 1 applic BID IRR Last administered on 01/18/19 22:13; Admin Dose 1 APPLIC; Start 01/05/19 at 13:00 Nystatin (Nystatin Powder) 1 applic BID TOP Last administered on 01/18/19 22:17; Admin Dose 1 APPLIC; Start 01/05/19 at 21:00 Heparin Sodium (Porcine) (Heparin (5000 Units/1ml)) 5,000 unit BID SC Last administered on 01/14/19 22:06; Admin Dose 5,000 UNIT; Start 01/06/19 at 14:30 Doxycycline Hyclate (Vibramycin) 100 mg BID PO Last administered on 01/18/19 21:55; Admin Dose 100 MG; Start 01/06/19 at 21:00 Ciprofloxacin (Cipro) 500 mg BID@18 PO Last administered on 01/19/19 05:57; Admin Dose 500 MG; Start 01/06/19 at 18:00 Clotrimazole (Lotrimin Cr) 1 applic BID TOP Last administered on 3/3/19at 22:15; Admin Dose 1 APPLIC; Start 01/09/19 at 21:00 Insulin Glargine (Lantus) 25 units DAILY@2000 SC Last administered on 01/18/19at 21:59; Admin Dose 25 UNITS; Start 01/10/19 at 20:00 SUZANNE HANOCCK NP Jan 19, 2019 10:50
[2019-01-19] MEDS: metFORMIN 850 MG TAB PO SCH ×2 (12:04→17:19)
[2019-01-19] MEDS: DOXYCYCLINE 100 MG TAB PO SCH ×2 (12:04→21:04)
[2019-01-19] MEDS: HEPARIN 5,000 UNIT/1 ML VIAL SC SCH ×2 (12:05→21:00)
[2019-01-19] MEDS: SODIUM HYPOCHLORITE (1/40) 1 APPLIC BTL IRR SCH ×2 (12:11→21:06)
[2019-01-19] MEDS: NYSTATIN 30 GM POWDER BTL TOP SCH ×2 (12:11→21:05)
[2019-01-19] MEDS: CLOTRIMAZOLE 1% 30 GM CR TOP SCH ×2 (12:14→21:05)
[2019-01-19] MEDS: ACETAMINOPHEN 325 MG TAB PO PRN (15:07)
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
[2019-01-19 20:51] VITALS: BP 139/90; PULSE 93; RESP 18
[2019-01-19] MEDS: INSULIN GLARGINE [LANTus] (100 UNITS/ML) SYG SC SCH (21:08)
[2019-01-20] MEDS: HYDROCORTISONE 1% 28.35 GM OINT TOP SCH ×3 (01:30→21:00)
[2019-01-20] MEDS: ACCU-CHEK XX SCH ×8 (02:00→21:00)
[2019-01-20] MEDS: LEVOTHYROXINE 75 MCG TAB PO SCH (06:00)
[2019-01-20] MEDS: CIPROFLOXACIN 500 MG TAB PO SCH (06:28)
[2019-01-20] MEDS: SOD CHLORIDE 0.9% 1,000 ML IV SCH ×2 (06:43→15:04)
[2019-01-20] MEDS: INSULIN ASPART [NOVOLOG] 3 ML PEN SC SCH ×4 (08:00→20:47)
[2019-01-20] MEDS: NYSTATIN 30 GM POWDER BTL TOP SCH ×2 (09:00→21:00)
[2019-01-20] MEDS: HEPARIN 5,000 UNIT/1 ML VIAL SC SCH ×2 (09:00→21:00)
[2019-01-20] MEDS: CLOTRIMAZOLE 1% 30 GM CR TOP SCH ×2 (09:00→21:00)
[2019-01-20] MEDS: FAMOTIDINE 20 MG TAB PO SCH ×3 (09:00→21:00)
[2019-01-20] MEDS: SODIUM HYPOCHLORITE (1/40) 1 APPLIC BTL IRR SCH ×2 (09:00→20:43)
[2019-01-20] MEDS: NATEGLINIDE 60 MG TAB PO SCH ×3 (11:30→18:28)
[2019-01-20] MEDS: DOXYCYCLINE 100 MG TAB PO SCH (12:40)
[2019-01-20] MEDS: metFORMIN 850 MG TAB PO SCH ×2 (12:41→18:28)
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
[2019-01-20 14:47] VITALS: BP 113/69; PULSE 85; RESP 16
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
[2019-01-20 20:00] VITALS: BP 112/77; PULSE 81; RESP 17
[2019-01-20] MEDS: AMOXICILLIN/CLAV 875 MG TAB PO SCH (20:45)
[2019-01-20] MEDS: HYDROCODONE/APAP (5/325) TAB PO PRN (20:46)
[2019-01-20] MEDS: INSULIN GLARGINE [LANTus] (100 UNITS/ML) SYG SC SCH (20:47)
[2019-01-20] MEDS ORDERED: morphine LIQ (10 MG/5 ML) CUP PO PRN (23:45)
[2019-01-21] MEDS: ACCU-CHEK XX SCH ×8 (02:00→21:00)
[2019-01-21] MEDS: SOD CHLORIDE 0.9% 1,000 ML IV SCH ×2 (02:24→12:25)
[2019-01-21] MEDS: LEVOTHYROXINE 75 MCG TAB PO SCH (06:00)
[2019-01-21] MEDS: HYDROCODONE/APAP (5/325) TAB PO PRN (06:56)
[2019-01-21] MEDS: NATEGLINIDE 60 MG TAB PO SCH ×3 (07:30→17:35)
[2019-01-21 08:00] VITALS: BP 143/90; PULSE 82; RESP 18
[2019-01-21] MEDS: INSULIN ASPART [NOVOLOG] 3 ML PEN SC SCH ×4 (08:00→20:59)
[2019-01-21] MEDS: HYDROCORTISONE 1% 28.35 GM OINT TOP SCH ×3 (08:48→21:12)
[2019-01-21] MEDS: SODIUM HYPOCHLORITE (1/40) 1 APPLIC BTL IRR SCH ×3 (09:00→21:13)
[2019-01-21] MEDS: CLOTRIMAZOLE 1% 30 GM CR TOP SCH ×3 (09:00→21:13)
[2019-01-21] MEDS: NYSTATIN 30 GM POWDER BTL TOP SCH ×2 (09:00→21:13)
[2019-01-21] MEDS: FAMOTIDINE 20 MG TAB PO SCH ×2 (09:00→21:00)
[2019-01-21] MEDS: metFORMIN 850 MG TAB PO SCH ×2 (10:51→17:55)
[2019-01-21] MEDS: AMOXICILLIN/CLAV 875 MG TAB PO SCH ×2 (10:51→20:55)
[2019-01-21] MEDS: HEPARIN 5,000 UNIT/1 ML VIAL SC SCH ×2 (10:55→20:55)
--- NOTE | 2019-01-21 10:59 | CONS ---
Assessment/Plan Assessment/Plan Hospital Course (Demo Recall) No changes, all noted Abx: Augmentin Microbiology: Blood and urine culture negative. Wound cultures growing Proteus mirabilis, E. coli, Klebsiella pneumonia ESBL positive and enterococcus species, none of which is susceptible to [place] quinolones or doxycycline. Enterococcus was susceptible to ampicillin. CT abdomen pelvis revealed deep soft tissue decubitus ulcerations extending to the initial tuberosities bilaterally. Associated increased sclerosis of the initial tuberosity suggest chronic osteomyelitis Physical examination: Well-developed well-nourished elderly man who is alert in no distress. Head atraumatic normocephalic neck is supple, trachea midline. Chest rise symmetrical, breath sounds clear. Heart: S1-S2. Abdomen soft bowel sounds present. Extremities without cyanosis Assessment: 1. Status post sepsis, present on admission 2. Bilateral ischial tuberosities osteomyelitis with necrotic wound 3. Paraplegia 4. Neurogenic bladder 5. Medical noncompliance Plan: Patient remains unchanged, needs IV abx with PICC which he continues to refuse Consultation Date/Type/Reason Admit Date/Time Jan 03, 2019 at 02:19 Initial Consult Date 01/03/19 Type of Consult id Requesting Provider: ALANNA BRIZUELA Date/Time of Note DATE: 01/21/19 TIME: 10:58 Exam/Review of Systems Exam Vitals Vital Signs Date Temp Pulse Resp B/P (MAP) Pulse Ox O2 O2 Flow FiO2 Time Delivery Rate 01/21/19 98.8 82 18 143/90 96 08:00 (107) 01/19/19 Room Air 20:51 Intake and Output 01/20/19 01/20/19 01/21/19 1515:00 23:00 07:00 IntakeIntake Total 1400 ml OutputOutput Total 700 ml 1350 ml BalanceBalance 700 ml -1350 ml Results Results 24hrs Laboratory Tests Test 01/20/19 11:29 01/20/19 12:23 01/20/19 18:26 01/20/19 20:42 Lab Scanned Report REFERENCE LAB Bedside Glucose 144 233 H 233 H Test 01/21/19 01:50 01/21/19 10:50 Bedside Glucose 260 H 171 Medications Medication Current Medications Sodium Chloride 1,000 ml @ 100 mls/hr Q10H IV Last administered on 01/04/19at 21:03; Admin Dose 100 MLS/HR; Start 01/03/19 at 04:51 IV Flush (NS 3 ml) 3 ml PER PROTOCOL IV ; Start 01/03/19 at 05:00 Ondansetron HCl (Zofran Inj) 4 mg Q6H PRN IV NAUSEA/VOMITING; Start 01/03/19 at 05:00 Acetaminophen (Tylenol Tab) 650 mg Q6H PRN PO .PAIN 1-3 OR TEMP Last administered on 01/19/19at 15:07; Admin Dose 650 MG; Start 01/03/19 at 05:00 Acetaminophen/ Hydrocodone Bitart ([place] (5/325)) 1 tab Q6H PRN PO .PAIN 4-6 Last administered on 01/21/19 06:56; Admin Dose 1 TAB; Start 01/03/19 at 05:00 Miscellaneous Information 1 ea NOTE XX ; Start 01/03/19 at 05:00 Glucose (Glutose) 15 gm Q15M PRN PO DECREASED GLUCOSE; Start 01/03/19 at 05:00 Glucose (Glutose) 22.5 gm Q15M PRN PO DECREASED GLUCOSE; Start 01/03/19 at 05:00 Dextrose (D50w Syringe) 25 ml Q15M PRN IV DECREASED GLUCOSE; Start 01/03/19 at 05:00 Dextrose (D50w Syringe) 50 ml Q15M PRN IV DECREASED GLUCOSE; Start 01/03/19 at 05:00 Glucagon (Glucagen) 1 mg Q15M PRN IM DECREASED GLUCOSE; Start 01/03/19 at 05:00 Glucose (Glutose) 15 gm Q15M PRN BUCCAL DECREASED GLUCOSE; Start 01/03/19 at 05:00 Diagnostic Test (Pha) (Accu-Chek) 1 ea 02 XX Last administered on 01/14/19at 02:17; Admin Dose 1 EA; Start 01/04/19 at 02:00 Diagnostic Test (Pha) (Accu-Chek) 1 ea 2 HOURS AFTER MEALS XX Last a dministered on 01/18/19at 14:00; Admin Dose 1 EA; Start 01/03/19 at 10:00 Insulin Aspart (Novolog Insulin Pen) NOVOLOG *MILD* ALGORITHM WITH MEALS BEDTIME SC Last administered on 01/20/19at 20:47; Admin Dose 2 UNIT; Start 01/03/19 at 12:00 Miscellaneous Information (Pending [facility]yl Order For Wound Care) This patient sanchez... PRN PRN XX WOUND CARE; Start 01/03/19 at 20:00 Levothyroxine Sodium (Synthroid) 75 mcg DAILY@06 PO Last administered on 01/16/19 12:13; Admin Dose 75 MCG; Start 01/05/19 at 06:00 Metformin HCl (Glucophage) 850 mg BID WITH MEALS PO Last administered on 01/21/19 10:51; Admin Dose 850 MG; Start 01/04/19 at 17:55 Nateglinide (Starlix) 60 mg AC MEALS PO Last administered on 01/21/19 10:51; Admin Dose 60 MG; Start 01/04/19 at 11:20 Diagnostic Test (Pha) (Accu-Chek) 1 ea AC MEALS AND BEDTIME XX Last administered on 01/19/19 17:00; Admin Dose 1 EA; Start 01/04/19 at 11:20 Famotidine (Pepcid) 20 mg BID PO Last administered on 01/17/19 22:22; Admin Dose 20 MG; Start 01/04/19 at 11:30 Sodium Hypochlorite (Dakin'S (Dilute 1/40)) 1 applic BID IRR Last administered on 01/19/19 21:06; Admin Dose 1 APPLIC; Start 01/05/19 at 13:00 Nystatin (Nystatin Powder) 1 applic BID TOP Last administered on 01/20/19 21:00; Admin Dose 1 APPLIC; Start 01/05/19 at 21:00 Heparin Sodium (Porcine) (Heparin (5000 Units/1ml)) 5,000 unit BID SC Last administered on 01/21/19 10:55; Admin Dose 5,000 UNIT; Start 01/06/19 at 14:30 Clotrimazole (Lotrimin Cr) 1 applic BID TOP Last administered on 01/20/19 21:00; Admin Dose 1 APPLIC; Start 01/09/19 at 21:00 Insulin Glargine (Lantus) 25 units DAILY@2000 SC Last administered on 01/20/19 20:47; Admin Dose 25 UNITS; Start 01/10/19 at 20:00 Hydrocortisone (Hydrocortisone 1% Oint) 1 applic BID TOP ; Start 01/20/19 at 01:30; Stop 01/22/19 at 01:00 Amoxicillin/ Clavulanate Potassium (Augmentin) 875 mg BID PO Last administered on 01/21/19at 10:51; Admin Dose 875 MG; Start 01/20/19 at 21:00 Morphine Sulfate (morphine) 6 mg Q4H PRN PO SEVERE PAIN LEVEL 7-10; Start 01/20/19 at 23:45 SUZANNE HANCOCK NP Jan 21, 2019 10:59
[2019-01-21 14:00] VITALS: BP 119/78; PULSE 80; RESP 18
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
[2019-01-21] MEDS: ACETAMINOPHEN 325 MG TAB PO PRN (19:48)
[2019-01-21] MEDS: INSULIN GLARGINE [LANTus] (100 UNITS/ML) SYG SC SCH (21:00)
[2019-01-22] MEDS: LEVOTHYROXINE 75 MCG TAB PO SCH (05:22)
[2019-01-22] MEDS: NATEGLINIDE 60 MG TAB PO SCH ×3 (07:30→15:51)
[2019-01-22] MEDS: ACCU-CHEK XX SCH ×7 (07:30→21:00)
[2019-01-22] MEDS: metFORMIN 850 MG TAB PO SCH ×2 (08:00→15:51)
[2019-01-22] MEDS: INSULIN ASPART [NOVOLOG] 3 ML PEN SC SCH ×4 (08:00→15:54)
[2019-01-22] MEDS: AMOXICILLIN/CLAV 875 MG TAB PO SCH ×3 (08:31→15:53)
[2019-01-22] MEDS: SODIUM HYPOCHLORITE (1/40) 1 APPLIC BTL IRR SCH ×2 (08:31→21:00)
[2019-01-22] MEDS: FAMOTIDINE 20 MG TAB PO SCH ×2 (08:31→21:00)
[2019-01-22] MEDS: CLOTRIMAZOLE 1% 30 GM CR TOP SCH (08:32)
[2019-01-22] MEDS: NYSTATIN 30 GM POWDER BTL TOP SCH (08:32)
[2019-01-22] MEDS: HEPARIN 5,000 UNIT/1 ML VIAL SC SCH ×2 (08:32→21:00)
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
[2019-01-22] MEDS: KETOCONAZOLE 2% 15 GM CR TOP SCH (12:30)
[2019-01-22 14:45] VITALS: BP 107/66; PULSE 86; RESP 18
[2019-01-22] MEDS: HYDROCODONE/APAP (5/325) TAB PO PRN (15:52)
[2019-01-22 20:40] VITALS: BP 134/84; PULSE 82; RESP 18
[2019-01-23] MEDS: INSULIN ASPART [NOVOLOG] 3 ML PEN SC SCH ×5 (00:46→21:42)
[2019-01-23] MEDS: INSULIN GLARGINE [LANTus] (100 UNITS/ML) SYG SC SCH ×2 (00:47→21:40)
[2019-01-23] MEDS: FAMOTIDINE 20 MG TAB PO SCH ×3 (00:49→21:00)
[2019-01-23] MEDS: KETOCONAZOLE 2% 15 GM CR TOP SCH ×3 (00:49→21:00)
[2019-01-23] MEDS: AMOXICILLIN/CLAV 875 MG TAB PO SCH ×3 (00:49→21:42)
[2019-01-23] MEDS: ACETAMINOPHEN 325 MG TAB PO PRN ×2 (00:49→17:30)
[2019-01-23] MEDS: CLOTRIMAZOLE 1% 30 GM CR TOP SCH ×3 (00:59→21:00)
[2019-01-23] MEDS: NYSTATIN 30 GM POWDER BTL TOP SCH ×3 (00:59→21:00)
[2019-01-23 02:00] VITALS: BP 121/63; PULSE 84; RESP 18
[2019-01-23] MEDS: LEVOTHYROXINE 75 MCG TAB PO SCH (06:00)
[2019-01-23 08:22] VITALS: BP 112/66; PULSE 76; RESP 18
[2019-01-23] MEDS: ACCU-CHEK XX SCH ×7 (10:03→21:00)
[2019-01-23] MEDS: NATEGLINIDE 60 MG TAB PO SCH ×3 (10:05→17:28)
[2019-01-23] MEDS: metFORMIN 850 MG TAB PO SCH ×2 (10:05→17:29)
[2019-01-23] MEDS: HEPARIN 5,000 UNIT/1 ML VIAL SC SCH ×2 (10:09→21:00)
--- NOTE | 2019-01-23 11:21 | CONS ---
Assessment/Plan Assessment/Plan Hospital Course (Demo Recall) No changes Abx: Augmentin Microbiology: Blood and urine culture negative. Wound cultures growing Proteus mirabilis, E. coli, Klebsiella pneumonia ESBL positive and enterococcus species, none of which is susceptible to [place] quinolones or doxycycline. Enterococcus was susceptible to ampicillin. CT abdomen pelvis revealed deep soft tissue decubitus ulcerations extending to the initial tuberosities bilaterally. Associated increased sclerosis of the initial tuberosity suggest chronic osteomyelitis Physical examination: Well-developed well-nourished elderly man who is alert in no distress. Head atraumatic normocephalic neck is supple, trachea mid line. Chest rise symmetrical, breath sounds clear. Heart: S1-S2. Abdomen soft bowel sounds present. Extremities without cyanosis Assessment: 1. Status post sepsis, present on admission 2. Bilateral ischial tuberosities osteomyelitis with necrotic wound 3. Paraplegia 4. Neurogenic bladder 5. Medical noncompliance Plan: Patient remains unchanged, pending dc arrangements to SNF Consultation Date/Type/Reason Admit Date/Time Jan 03, 2019 at 02:19 Initial Consult Date 01/03/19 Type of Consult id Requesting Provider: ALANNA BRIZUELA Date/Time of Note DATE: 01/23/19 TIME: 11:21 Exam/Review of Systems Exam Vitals Vital Signs Date Temp Pulse Resp B/P (MAP) Pulse Ox O2 O2 Flow FiO2 Time Delivery Rate 01/23/19 97.9 84 18 121/63 98 02:00 (82) 01/22/19 Room Air 14:45 Intake and Output 01/22/19 01/22/19 01/23/19 1515:00 23:00 07:00 IntakeIntake Total 300 ml 540 ml OutputOutput Total 2000 ml 1000 ml BalanceBalance -1700 ml -460 ml Results Results 24hrs Laboratory Tests Test 01/22/19 15:48 01/23/19 00:36 01/23/19 10:02 Bedside Glucose 255 H 321 H 190 Medications Medication Current Medications IV Flush (NS 3 ml) 3 ml PER PROTOCOL IV ; Start 01/03/19 at 05:00 Ondansetron HCl (Zofran Inj) 4 mg Q6H PRN IV NAUSEA/VOMITING; Start 01/03/19 at 05:00 Acetaminophen (Tylenol Tab) 650 mg Q6H PRN PO .PAIN 1-3 OR TEMP Last administered on 3/8/19at 00:49; Admin Dose 650 MG; Start 01/03/19 at 05:00 Acetaminophen/ Hydrocodone Bitart ([place] (5/325)) 1 tab Q6H PRN PO .PAIN 4-6 Last administered on 01/22/19 15:52; Admin Dose 1 TAB; Start 01/03/19 at 05:00 Miscellaneous Information 1 ea NOTE XX ; Start 01/03/19 at 05:00 Glucose (Glutose) 15 gm Q15M PRN PO DECREASED GLUCOSE; Start 01/03/19 at 05:00 Glucose (Glutose) 22.5 gm Q15M PRN PO DECREASED GLUCOSE; Start 01/03/19 at 05:00 Dextrose (D50w Syringe) 25 ml Q15M PRN IV DECREASED GLUCOSE; Start 01/03/19 at 05:00 Dextrose (D50w Syringe) 50 ml Q15M PRN IV DECREASED GLUCOSE; Start 01/03/19 at 05:00 Glucagon (Glucagen) 1 mg Q15M PRN IM DECREASED GLUCOSE; Start 01/03/19 at 05:00 Glucose (Glutose) 15 gm Q15M PRN BUCCAL DECREASED GLUCOSE; Start 01/03/19 at 05:00 Diagnostic Test (Pha) (Accu-Chek) 1 ea 2 HOURS AFTER MEALS XX Last administered on 01/18/19 14:00; Admin Dose 1 EA; Start 01/03/19 at 10:00 Insulin Aspart (Novolog Insulin Pen) NOVOLOG *MILD* ALGORITHM WITH MEALS BEDTIME SC Last administered on 01/23/19 10:13; Admin Dose 2 UNIT; Start 01/03/19 at 12:00 Miscellaneous Information [facility] This patient sanchez... PRN PRN XX WOUND CARE; Start 01/03/19 at 20:00 Levothyroxine Sodium (Synthroid) 75 mcg DAILY@06 PO Last administered on 01/16/19 12:13; Admin Dose 75 MCG; Start 01/05/19 at 06:00 Metformin HCl (Glucophage) 850 mg BID WITH MEALS PO Last administered on 01/23/19 10:05; Admin Dose 850 MG; Start 01/04/19 at 17:55 Nateglinide (Starlix) 60 mg AC MEALS PO Last administered on 01/23/19 10:05; Admin Dose 60 MG; Start 01/04/19 at 11:20 Diagnostic Test (Pha) (Accu-Chek) 1 ea AC MEALS AND BEDTIME XX Last administered on 01/19/19 17:00; Admin Dose 1 EA; Start 01/04/19 at 11:20 Famotidine (Pepcid) 20 mg BID PO Last administered on 01/17/19 22:22; Admin Dose 20 MG; Start 01/04/19 at 11:30 Sodium Hypochlorite (Dakin'S (Dilute 40)) 1 applic BID IRR Last administered on 01/22/19 21:00; Admin Dose 1 APPLIC; Start 01/05/19 at 13:00 Nystatin (Nystatin Powder) 1 applic BID TOP Last administered on 01/23/19 00:59; Admin Dose 1 APPLIC; Start 01/05/19 at 21:00 Heparin Sodium (Porcine) (Heparin (5000 Units/1ml)) 5,000 unit BID SC Last administered on 01/23/19 10:09; Admin Dose 5,000 UNIT; Start 01/06/19 at 14:30 Clotrimazole (Lotrimin Cr) 1 applic BID TOP Last administered on 01/23/19 00:59; Admin Dose 1 APPLIC; Start 01/09/19 at 21:00 Amoxicillin/ Clavulanate Potassium (Augmentin) 875 mg BID PO Last administered on 01/23/19 10:05; Admin Dose 875 MG; Start 01/20/19 at 21:00 Morphine Sulfate (morphine) 6 mg Q4H PRN PO SEVERE PAIN LEVEL 7-10; Start 01/20/19 at 23:45 Insulin Glargine (Lantus) 30 units DAILY@2000 SC Last administered on 01/23/19 00:47; Admin Dose 30 UNITS; Start 01/21/19 at 20:00 Ketoconazole (Nizoral Cr) 1 applic BID TOP Last administered on 01/23/19 00:49; Admin Dose 1 APPLIC; Start 01/22/19 at 12:30 SUZANNE HANCOCK NP Jan 23, 2019 11:21
--- NOTE | 2019-01-23 12:51 | QN ---
Documentation Comment Patient still refused to be seen states he does not have any psychiatric issue and does not want to be seen by psychiatric social worker. LILLY HORTON PLANER SETUP OPERATOR Jan 23, 2019 12:51
[2019-01-23 14:00] VITALS: BP 114/79; PULSE 80; RESP 18
[2019-01-23] MEDS: SODIUM HYPOCHLORITE (1/40) 1 APPLIC BTL IRR SCH ×2 (15:38→21:00)
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
[2019-01-24] MEDS: LEVOTHYROXINE 75 MCG TAB PO SCH (05:44)
[2019-01-24] MEDS: ACCU-CHEK XX SCH ×7 (07:30→22:36)
[2019-01-24] MEDS: NATEGLINIDE 60 MG TAB PO SCH ×3 (07:30→17:33)
[2019-01-24] MEDS: INSULIN ASPART [NOVOLOG] 3 ML PEN SC SCH ×4 (08:00→22:33)
[2019-01-24] MEDS: metFORMIN 850 MG TAB PO SCH ×2 (08:00→17:33)
[2019-01-24] MEDS: SODIUM HYPOCHLORITE (1/40) 1 APPLIC BTL IRR SCH ×2 (09:00→20:51)
[2019-01-24] MEDS: KETOCONAZOLE 2% 15 GM CR TOP SCH ×2 (09:00→20:51)
[2019-01-24] MEDS: AMOXICILLIN/CLAV 875 MG TAB PO SCH ×2 (09:00→20:47)
[2019-01-24] MEDS: CLOTRIMAZOLE 1% 30 GM CR TOP SCH ×2 (09:00→20:51)
[2019-01-24] MEDS: FAMOTIDINE 20 MG TAB PO SCH ×2 (09:00→20:50)
[2019-01-24] MEDS: HEPARIN 5,000 UNIT/1 ML VIAL SC SCH ×2 (09:00→20:50)
[2019-01-24] MEDS: NYSTATIN 30 GM POWDER BTL TOP SCH ×2 (09:00→20:51)
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
[2019-01-24 14:59] VITALS: BP 116/56; PULSE 102; RESP 17
[2019-01-24] MEDS: HYDROCORTISONE 0.5% 28.35 GM OINT TOP SCH ×2 (15:00→20:51)
[2019-01-24] MEDS: ACETAMINOPHEN 325 MG TAB PO PRN (19:45)
[2019-01-24 20:00] VITALS: BP 119/74; PULSE 88; RESP 18
[2019-01-24] MEDS: INSULIN GLARGINE [LANTus] (100 UNITS/ML) SYG SC SCH (22:33)
[2019-01-25] MEDS: LEVOTHYROXINE 75 MCG TAB PO SCH (05:08)
[2019-01-25] MEDS: ACCU-CHEK XX SCH ×7 (07:30→21:00)
[2019-01-25] MEDS: NATEGLINIDE 60 MG TAB PO SCH ×3 (07:30→17:35)
[2019-01-25] MEDS: FAMOTIDINE 20 MG TAB PO SCH ×2 (09:00→21:00)
[2019-01-25] MEDS: CLOTRIMAZOLE 1% 30 GM CR TOP SCH ×2 (09:00→21:24)
[2019-01-25] MEDS: SODIUM HYPOCHLORITE (1/40) 1 APPLIC BTL IRR SCH ×2 (09:00→21:23)
[2019-01-25] MEDS: KETOCONAZOLE 2% 15 GM CR TOP SCH ×2 (09:00→21:24)
[2019-01-25] MEDS: HYDROCORTISONE 0.5% 28.35 GM OINT TOP SCH ×2 (09:00→21:26)
[2019-01-25] MEDS: NYSTATIN 30 GM POWDER BTL TOP SCH ×2 (09:00→21:24)
[2019-01-25] MEDS: HEPARIN 5,000 UNIT/1 ML VIAL SC SCH ×2 (09:00→21:00)
[2019-01-25] MEDS: ACETAMINOPHEN 325 MG TAB PO PRN (11:33)
[2019-01-25] MEDS: metFORMIN 850 MG TAB PO SCH ×2 (11:34→18:45)
[2019-01-25] MEDS: AMOXICILLIN/CLAV 875 MG TAB PO SCH ×2 (11:34→21:19)
[2019-01-25] MEDS: INSULIN ASPART [NOVOLOG] 3 ML PEN SC SCH ×4 (11:36→21:00)
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
[2019-01-25] MEDS: INSULIN GLARGINE [LANTus] (100 UNITS/ML) SYG SC SCH (20:04)
[2019-01-26] MEDS: ACETAMINOPHEN 325 MG TAB PO PRN ×2 (00:51→18:00)
[2019-01-26] MEDS: LEVOTHYROXINE 75 MCG TAB PO SCH (06:00)
[2019-01-26] MEDS: NATEGLINIDE 60 MG TAB PO SCH ×4 (07:30→18:00)
[2019-01-26] MEDS: ACCU-CHEK XX SCH ×7 (07:30→23:00)
[2019-01-26] MEDS: INSULIN ASPART [NOVOLOG] 3 ML PEN SC SCH ×5 (08:00→23:15)
[2019-01-26] MEDS: metFORMIN 850 MG TAB PO SCH ×3 (08:00→18:00)
[2019-01-26] MEDS: HEPARIN 5,000 UNIT/1 ML VIAL SC SCH ×2 (08:28→23:00)
[2019-01-26] MEDS: AMOXICILLIN/CLAV 875 MG TAB PO SCH ×3 (08:28→23:12)
[2019-01-26] MEDS: SODIUM HYPOCHLORITE (1/40) 1 APPLIC BTL IRR SCH ×2 (08:28→23:00)
[2019-01-26] MEDS: HYDROCORTISONE 0.5% 28.35 GM OINT TOP SCH ×2 (08:28→23:00)
[2019-01-26] MEDS: FAMOTIDINE 20 MG TAB PO SCH ×2 (08:28→23:13)
[2019-01-26] MEDS: CLOTRIMAZOLE 1% 30 GM CR TOP SCH ×2 (08:29→23:00)
[2019-01-26] MEDS: NYSTATIN 30 GM POWDER BTL TOP SCH ×2 (08:29→23:00)
[2019-01-26] MEDS: KETOCONAZOLE 2% 15 GM CR TOP SCH ×2 (08:29→23:00)
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
[2019-01-26 20:10] VITALS: BP 136/73; RESP 17
[2019-01-26] MEDS: INSULIN GLARGINE [LANTus] (100 UNITS/ML) SYG SC SCH (23:16)
[2019-01-27 02:17] VITALS: BP 114/67; PULSE 85; RESP 18
[2019-01-27] MEDS: LEVOTHYROXINE 75 MCG TAB PO SCH (05:47)
[2019-01-27] MEDS: NATEGLINIDE 60 MG TAB PO SCH ×4 (07:30→16:52)
[2019-01-27] MEDS: ACCU-CHEK XX SCH ×7 (07:30→21:14)
[2019-01-27] MEDS: metFORMIN 850 MG TAB PO SCH ×3 (07:58→18:21)
[2019-01-27] MEDS: INSULIN ASPART [NOVOLOG] 3 ML PEN SC SCH ×5 (07:59→23:49)
[2019-01-27] MEDS: SODIUM HYPOCHLORITE (1/40) 1 APPLIC BTL IRR SCH ×2 (08:07→21:00)
[2019-01-27] MEDS: FAMOTIDINE 20 MG TAB PO SCH ×2 (08:07→21:00)
[2019-01-27] MEDS: HYDROCORTISONE 0.5% 28.35 GM OINT TOP SCH ×2 (08:07→21:32)
[2019-01-27] MEDS: CLOTRIMAZOLE 1% 30 GM CR TOP SCH ×3 (08:07→21:00)
[2019-01-27] MEDS: AMOXICILLIN/CLAV 875 MG TAB PO SCH ×3 (08:07→21:26)
[2019-01-27] MEDS: HEPARIN 5,000 UNIT/1 ML VIAL SC SCH ×2 (08:07→21:00)
[2019-01-27] MEDS: KETOCONAZOLE 2% 15 GM CR TOP SCH ×2 (08:08→21:00)
[2019-01-27] MEDS: NYSTATIN 30 GM POWDER BTL TOP SCH ×2 (08:08→21:00)
[2019-01-27] MEDS: ACETAMINOPHEN 325 MG TAB PO PRN (14:40)
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
[2019-01-27 20:00] VITALS: BP 125/70; PULSE 79; RESP 18
[2019-01-27] MEDS: INSULIN GLARGINE [LANTus] (100 UNITS/ML) SYG SC SCH (20:00)
[2019-01-27] MEDS: HYDROCODONE/APAP (5/325) TAB PO PRN (23:36)
[2019-01-28] MEDS: LEVOTHYROXINE 75 MCG TAB PO SCH (06:00)
[2019-01-28] MEDS: ACCU-CHEK XX SCH ×7 (07:30→22:44)
[2019-01-28] MEDS: NATEGLINIDE 60 MG TAB PO SCH ×4 (07:30→17:48)
[2019-01-28] MEDS: metFORMIN 850 MG TAB PO SCH ×3 (08:00→17:48)
[2019-01-28] MEDS: INSULIN ASPART [NOVOLOG] 3 ML PEN SC SCH ×4 (08:00→22:42)
[2019-01-28] MEDS: HEPARIN 5,000 UNIT/1 ML VIAL SC SCH ×2 (09:00→21:00)
[2019-01-28] MEDS: HYDROCORTISONE 0.5% 28.35 GM OINT TOP SCH ×2 (09:00→22:44)
[2019-01-28] MEDS: AMOXICILLIN/CLAV 875 MG TAB PO SCH ×2 (09:44→22:41)
[2019-01-28] MEDS: FAMOTIDINE 20 MG TAB PO SCH ×2 (09:44→22:41)
[2019-01-28] MEDS: CLOTRIMAZOLE 1% 30 GM CR TOP SCH ×2 (09:46→22:43)
[2019-01-28] MEDS: NYSTATIN 30 GM POWDER BTL TOP SCH ×2 (09:46→22:42)
[2019-01-28] MEDS: KETOCONAZOLE 2% 15 GM CR TOP SCH ×2 (09:47→22:44)
[2019-01-28] MEDS: SODIUM HYPOCHLORITE (1/40) 1 APPLIC BTL IRR SCH ×2 (09:47→22:42)
[2019-01-28] MEDS: HYDROCODONE/APAP (5/325) TAB PO PRN (15:52)
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
[2019-01-28] MEDS: INSULIN GLARGINE [LANTus] (100 UNITS/ML) SYG SC SCH (22:41)
[2019-01-29] MEDS: LEVOTHYROXINE 75 MCG TAB PO SCH (06:00)
[2019-01-29] MEDS: ACCU-CHEK XX SCH ×7 (07:30→21:44)
[2019-01-29] MEDS: NATEGLINIDE 60 MG TAB PO SCH ×3 (07:30→17:39)
[2019-01-29] MEDS: metFORMIN 850 MG TAB PO SCH ×3 (08:00→17:39)
[2019-01-29] MEDS: INSULIN ASPART [NOVOLOG] 3 ML PEN SC SCH ×4 (08:00→21:00)
[2019-01-29] MEDS: AMOXICILLIN/CLAV 875 MG TAB PO SCH ×3 (09:00→21:37)
[2019-01-29] MEDS: KETOCONAZOLE 2% 15 GM CR TOP SCH ×2 (09:00→21:00)
[2019-01-29] MEDS: HEPARIN 5,000 UNIT/1 ML VIAL SC SCH ×2 (09:00→21:00)
[2019-01-29] MEDS: NYSTATIN 30 GM POWDER BTL TOP SCH ×3 (09:00→21:00)
[2019-01-29] MEDS: SODIUM HYPOCHLORITE (1/40) 1 APPLIC BTL IRR SCH ×3 (09:00→21:37)
[2019-01-29] MEDS: CLOTRIMAZOLE 1% 30 GM CR TOP SCH ×2 (09:00→21:00)
[2019-01-29] MEDS: FAMOTIDINE 20 MG TAB PO SCH ×2 (09:00→21:00)
[2019-01-29] MEDS: HYDROCORTISONE 0.5% 28.35 GM OINT TOP SCH ×2 (09:00→21:00)
[2019-01-29 12:28] VITALS: BP 108/72; PULSE 99; RESP 16
[2019-01-29] MEDS: ACETAMINOPHEN 325 MG TAB PO PRN ×2 (15:15→21:42)
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
[2019-01-29 20:30] VITALS: BP 115/71; PULSE 85; RESP 18
[2019-01-29] MEDS: INSULIN GLARGINE [LANTus] (100 UNITS/ML) SYG SC SCH (21:39)
[2019-01-30 02:00] VITALS: BP 103/63; RESP 18
[2019-01-30] MEDS: LEVOTHYROXINE 75 MCG TAB PO SCH (05:41)
[2019-01-30] MEDS: ACCU-CHEK XX SCH ×5 (10:00→17:51)
[2019-01-30] MEDS: FAMOTIDINE 20 MG TAB PO SCH (12:33)
[2019-01-30] MEDS: AMOXICILLIN/CLAV 875 MG TAB PO SCH (12:34)
[2019-01-30] MEDS: NATEGLINIDE 60 MG TAB PO SCH ×3 (12:34→17:35)
[2019-01-30] MEDS: metFORMIN 850 MG TAB PO SCH ×2 (12:34→17:51)
[2019-01-30] MEDS: INSULIN ASPART [NOVOLOG] 3 ML PEN SC SCH ×2 (12:35→17:48)
[2019-01-30] MEDS: HEPARIN 5,000 UNIT/1 ML VIAL SC SCH (12:37)
[2019-01-30] MEDS: NYSTATIN 30 GM POWDER BTL TOP SCH (12:41)
[2019-01-30] MEDS: SODIUM HYPOCHLORITE (1/40) 1 APPLIC BTL IRR SCH (12:41)
[2019-01-30] MEDS: CLOTRIMAZOLE 1% 30 GM CR TOP SCH (12:41)
[2019-01-30] MEDS: KETOCONAZOLE 2% 15 GM CR TOP SCH (12:42)
[2019-01-30] MEDS: HYDROCORTISONE 0.5% 28.35 GM OINT TOP SCH (12:42)
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
[2019-01-30] MEDS: HYDROCODONE/APAP (5/325) TAB PO PRN (18:47)
[2019-01-31] MEDS ORDERED: MORP15TA92 PO (02:47)
[2019-01-31] MEDS ORDERED: HYDR-4011 PO (02:47)
[2019-01-31] MEDS ORDERED: NATE60TA PO (02:47)
[2019-01-31] MEDS ORDERED: METF-480 PO (02:47)
[2019-01-31] MEDS ORDERED: LEVO75TA5 PO (02:47)
[2019-01-31] MEDS ORDERED: ONDA4TAB95 PO (02:47)
[2019-01-31] MEDS ORDERED: LANT3I SC (02:47)
[2019-01-31] MEDS ORDERED: ACET-2047 PO (02:47)
[2019-01-31] MEDS ORDERED: [UNRECOGNIZED DRUG - CODE] PO (02:47)
[2019-01-31] MEDS ORDERED: NOVO3I SC (02:47)
[2019-01-31] MEDS ORDERED: NYST15CR28 TOP (02:47)
== END 2019-01-30 20:00 | DRG 871 ==
LOC: E/R 22:35 → TEL 01-03 02:19 → 2NE 01-07 06:19 → PP2 01-07 07:33
PROVIDERS: ADMIT Hospitalist; ATTEND Internal Medicine
PROC: 0T2BX0Z Change Drainage Device in Bladder, External Approach (ICD-10-PCS; principal; 2019-01-08)
DX: A41.9 Sepsis, unspecified organism (principal); L89.313 Pressure ulcer of right buttock, stage 3; L89.154 Pressure ulcer of sacral region, stage 4; G82.20 Paraplegia, unspecified; M86.8X8 Other osteomyelitis, other site; E11.65 Type 2 diabetes mellitus with hyperglycemia; N31.9 Neuromuscular dysfunction of bladder, unspecified; B35.1 Tinea unguium; I10 Essential (primary) hypertension; D64.9 Anemia, unspecified; B18.2 Chronic viral hepatitis C; E03.9 Hypothyroidism, unspecified; L21.9 Seborrheic dermatitis, unspecified; R33.9 Retention of urine, unspecified; N35.919 Unspecified urethral stricture, male, unspecified site; B96.20 Unspecified Escherichia coli [E. coli] as the cause of diseases classified elsewhere; B96.4 Proteus (mirabilis) (morganii) as the cause of diseases classified elsewhere; B96.1 Klebsiella pneumoniae [K. pneumoniae] as the cause of diseases classified elsewhere; B95.2 Enterococcus as the cause of diseases classified elsewhere; Z79.4 Long term (current) use of insulin; Z59.0 Homelessness; Z99.3 Dependence on wheelchair; Z87.891 Personal history of nicotine dependence; Z91.19 Patient's noncompliance with other medical treatment and regimen
CPT/HCPCS: 36415; 71045; 74178; 80048; 80053; 82270; 82728; 82962; 83036; 83540; 83605; 83735; 84443; 84484; 85025; 85610; 85651; 85730; 86592; 86803; 87040; 87070; 87086; 87340; 93005; 96365; J1644; J1815; J2185; J2270; J2543; J7030; Q9967

== ENCOUNTER 2019-01-30 22:32 | Inpatient (IN) | payer OTHER ==
[~2019-01-30] VITALS: Ht 167.6 cm; Wt 75.5 kg
[2019-01-30] MEDS ORDERED: CEFTRIAXONE 1 GM/50 ML (PMX) 50 ML IVPB ONE (23:00)
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
[2019-01-30 23:08] VITALS: Ht 167.6 cm; Wt 75.5 kg
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
[2019-01-31] MEDS ORDERED: ONDANSETRON 4 MG INJ IV STA
[2019-01-31] MEDS ORDERED: NACL 0.9% 3 ML SYG IV SCH (00:30)
[2019-01-31] MEDS ORDERED: ALBUTEROL/IPRATROPIUM (NEB) 3 ML AMP HHN PRN (00:30)
[2019-01-31] MEDS ORDERED: ACETAMINOPHEN 325 MG TAB PO PRN (00:30)
[2019-01-31] MEDS ORDERED: ONDANSETRON 4 MG INJ IV PRN (00:30)
[2019-01-31] MEDS ORDERED: HYDROCODONE/APAP (5/325) TAB PO PRN ×2 (00:30→17:00)
[2019-01-31] MEDS ORDERED: ONDA4TAB95 PO (02:47)
[2019-01-31] MEDS ORDERED: NOVO3I SC (02:47)
[2019-01-31] MEDS ORDERED: [UNRECOGNIZED DRUG - CODE] PO (02:47)
[2019-01-31] MEDS ORDERED: METF-480 PO (02:47)
[2019-01-31] MEDS ORDERED: NATE60TA PO (02:47)
[2019-01-31] MEDS ORDERED: LEVO75TA5 PO (02:47)
[2019-01-31] MEDS ORDERED: HYDR-4011 PO (02:47)
[2019-01-31] MEDS ORDERED: ACET-2047 PO (02:47)
[2019-01-31] MEDS ORDERED: MORP15TA92 PO (02:47)
[2019-01-31] MEDS ORDERED: LANT3I SC (02:47)
[2019-01-31] MEDS ORDERED: NYST15CR28 TOP (02:47)
[2019-01-31] MEDS: NATEGLINIDE 60 MG TAB PO SCH ×3 (07:00→17:15)
[2019-01-31] MEDS: LEVOTHYROXINE 75 MCG TAB PO SCH (07:00)
[2019-01-31] MEDS: metFORMIN 850 MG TAB PO SCH ×2 (08:00→17:18)
[2019-01-31] MEDS: INSULIN ASPART [NOVOLOG] 3 ML PEN SC SCH ×7 (08:00→22:27)
[2019-01-31] MEDS: morphine (ER) 15 MG TAB PO SCH ×4 (08:00→22:00)
[2019-01-31] MEDS: HEPARIN 5,000 UNIT/1 ML VIAL SC SCH ×3 (09:00→21:58)
[2019-01-31] MEDS: FAMOTIDINE 20 MG TAB PO SCH ×3 (09:00→21:59)
[2019-01-31] MEDS ORDERED: DEXTROSE 50% 50 ML SYRINGE IV PRN ×2 (10:00)
[2019-01-31] MEDS ORDERED: GLUCAGON 1 MG INJ IM PRN (10:00)
[2019-01-31] MEDS ORDERED: GLUCOSE GEL 15 GRAM TUBE BUCCAL PRN (10:00)
[2019-01-31] MEDS ORDERED: GLUCOSE GEL 15 GRAM TUBE PO PRN ×2 (10:00)
--- NOTE | 2019-01-31 11:55 | QN ---
Documentation Comment Patient is a 58-year old male who is increasingly anxious and irritable. On a [id number] evaluation patient states he doesn't need psychiatry wanted interviewer to leave the room. Unable to continue assessment because patient is upset that psychiatry consult was called, states he needs a dietitian and a private room LILLY HORTON NP Jan 31, 2019 11:55
[2019-01-31] MEDS: HYDROCODONE/APAP (5/325) TAB PO PRN (12:38)
[2019-01-31] MEDS ORDERED: ONDANSETRON 4 MG TAB PO PRN (16:30)
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
[2019-01-31] MEDS ORDERED: HYDROCODONE/APAP (5/325) TAB PO SCH (17:00)
[2019-01-31 20:00] VITALS: BP 120/70; PULSE 78; RESP 20
[2019-01-31] MEDS: INSULIN GLARGINE [LANTus] (100 UNITS/ML) SYG SC SCH (21:58)
[2019-01-31] MEDS: GABAPENTIN 100 MG CAP PO SCH (21:59)
[2019-02-01 02:00] VITALS: BP 132/70; PULSE 80; RESP 19
[2019-02-01] MEDS: ACCU-CHEK XX SCH (02:00)
[2019-02-01] MEDS: morphine (ER) 15 MG TAB PO SCH ×3 (06:00→21:52)
[2019-02-01] MEDS: HYDROCORTISONE 0.5% 28.35 GM CR TOP SCH ×2 (06:00)
[2019-02-01] MEDS: NATEGLINIDE 60 MG TAB PO SCH ×3 (06:12→18:16)
[2019-02-01] MEDS: LEVOTHYROXINE 75 MCG TAB PO SCH (06:13)
[2019-02-01] MEDS: metFORMIN 850 MG TAB PO SCH ×2 (08:00→17:53)
[2019-02-01] MEDS: INSULIN ASPART [NOVOLOG] 3 ML PEN SC SCH ×8 (08:00→23:59)
[2019-02-01] MEDS: FAMOTIDINE 20 MG TAB PO SCH ×4 (09:00→23:58)
[2019-02-01] MEDS: HEPARIN 5,000 UNIT/1 ML VIAL SC SCH ×3 (09:00→21:00)
[2019-02-01] MEDS: GABAPENTIN 100 MG CAP PO SCH ×3 (09:00→21:00)
[2019-02-01 14:00] VITALS: BP 64/130; RESP 18
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
[2019-02-01 19:32] VITALS: BP 119/64; PULSE 84; RESP 18
[2019-02-01] MEDS: INSULIN GLARGINE [LANTus] (100 UNITS/ML) SYG SC SCH (21:00)
[2019-02-01] MEDS: ACETAMINOPHEN 325 MG TAB PO PRN (23:54)
[2019-02-02] MEDS: HEPARIN 5,000 UNIT/1 ML VIAL SC SCH ×3 (00:01→21:00)
[2019-02-02] MEDS: ACCU-CHEK XX SCH (02:00)
[2019-02-02] MEDS: morphine (ER) 15 MG TAB PO SCH ×3 (05:26→21:02)
[2019-02-02] MEDS: INSULIN ASPART [NOVOLOG] 3 ML PEN SC SCH ×7 (11:05→20:45)
[2019-02-02] MEDS: NATEGLINIDE 60 MG TAB PO SCH ×3 (11:09→17:14)
[2019-02-02] MEDS: GABAPENTIN 100 MG CAP PO SCH ×3 (11:09→21:00)
[2019-02-02] MEDS: LEVOTHYROXINE 75 MCG TAB PO SCH (11:10)
[2019-02-02] MEDS: metFORMIN 850 MG TAB PO SCH ×2 (11:12→17:13)
[2019-02-02] MEDS: FAMOTIDINE 20 MG TAB PO SCH ×2 (11:42→21:00)
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
[2019-02-02 14:00] VITALS: BP 129/73; PULSE 80; RESP 18
[2019-02-02 19:40] VITALS: BP 130/74; PULSE 72; RESP 18
[2019-02-02] MEDS: INSULIN GLARGINE [LANTus] (100 UNITS/ML) SYG SC SCH ×2 (20:46)
[2019-02-02] MEDS: HYDROCORTISONE 1% 28 GM CR TOP SCH (23:30)
[2019-02-03 02:00] VITALS: BP 140/82; PULSE 72; RESP 18
[2019-02-03] MEDS: ACCU-CHEK XX SCH (02:00)
[2019-02-03] MEDS: morphine (ER) 15 MG TAB PO SCH ×2 (05:18→15:09)
[2019-02-03] MEDS: LEVOTHYROXINE 75 MCG TAB PO SCH (06:41)
[2019-02-03] MEDS: FAMOTIDINE 20 MG TAB PO SCH (10:14)
[2019-02-03] MEDS: GABAPENTIN 100 MG CAP PO SCH ×3 (10:14→21:00)
[2019-02-03] MEDS: HYDROCORTISONE 1% 28 GM CR TOP SCH ×2 (10:15→21:00)
[2019-02-03] MEDS: HEPARIN 5,000 UNIT/1 ML VIAL SC SCH ×2 (10:15→21:00)
[2019-02-03] MEDS: metFORMIN 850 MG TAB PO SCH ×2 (10:36→17:13)
[2019-02-03] MEDS: NATEGLINIDE 60 MG TAB PO SCH ×3 (10:36→17:13)
[2019-02-03] MEDS: INSULIN ASPART [NOVOLOG] 3 ML PEN SC SCH ×7 (10:37→21:23)
[2019-02-03 14:44] VITALS: BP 124/78
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
[2019-02-03 20:00] VITALS: BP 96/59; RESP 19
[2019-02-03] MEDS: INSULIN GLARGINE [LANTus] (100 UNITS/ML) SYG SC SCH (21:23)
[2019-02-03] MEDS: ACETAMINOPHEN 325 MG TAB PO PRN (21:32)
[2019-02-04] MEDS: NATEGLINIDE 60 MG TAB PO SCH ×2 (07:00→11:30)
[2019-02-04] MEDS: LEVOTHYROXINE 75 MCG TAB PO SCH (07:00)
[2019-02-04] MEDS: GABAPENTIN 100 MG CAP PO SCH ×2 (09:00→13:00)
[2019-02-04] MEDS: HYDROCORTISONE 1% 28 GM CR TOP SCH (09:00)
[2019-02-04] MEDS: HEPARIN 5,000 UNIT/1 ML VIAL SC SCH (09:00)
[2019-02-04] MEDS: HYDROCODONE/APAP (5/325) TAB PO PRN (11:09)
[2019-02-04] MEDS: INSULIN ASPART [NOVOLOG] 3 ML PEN SC SCH ×4 (11:15→12:00)
[2019-02-04] MEDS: metFORMIN 850 MG TAB PO SCH (11:24)
[2019-02-04] MEDS ORDERED: LEVO75TA5 PO (13:03)
[2019-02-04] MEDS ORDERED: LANT3I SC (13:03)
[2019-02-04] MEDS ORDERED: METF-480 PO (13:03)
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
== END 2019-02-04 13:25 | disposition home or self-care (01) | DRG 593 ==
LOC: E/R 22:32 → 5EC 01-31 00:18 → OBSVTOIN 02-04 05:02
PROVIDERS: ADMIT Internal Medicine; ATTEND Internal Medicine
DX: L89.154 Pressure ulcer of sacral region, stage 4 (principal); G82.20 Paraplegia, unspecified; M86.68 Other chronic osteomyelitis, other site; E11.622 Type 2 diabetes mellitus with other skin ulcer; E11.65 Type 2 diabetes mellitus with hyperglycemia; I10 Essential (primary) hypertension; E03.9 Hypothyroidism, unspecified; N31.9 Neuromuscular dysfunction of bladder, unspecified; B35.1 Tinea unguium; D50.9 Iron deficiency anemia, unspecified; Z79.4 Long term (current) use of insulin; Z79.84 Long term (current) use of oral hypoglycemic drugs; Z99.3 Dependence on wheelchair; Z87.891 Personal history of nicotine dependence
CPT/HCPCS: 80048; 80053; 82962; 85025; 96374; 96375; 99217; G0378; J0696; J1644; J1815; J2405